=== PATIENT | female | born 1955 | race Caucasian/White ===

== ENCOUNTER 2023-04-07 10:01 | Observation (INO) ==
--- NOTE | 2023-03-02 14:31 | Anesthesiology Consultation ---
Date of Service March 02, 2023 Assessment & Plan (1) Encounter for pre-operative examination: - patient states will need to call into PAT with medication list. - upcoming S PCP pre-operative evaluation, ESR also needs completed. PAT testing and optimization form to be faxed to PCP. Chart Review Chart Review: Pending: Refer to Additional Notes / Consult section and Patient seen in Pre Admission Testing Teaching & Discussion Pre-Anesthesia Teaching/Discussion Notes: Instructed NPO after midnight before surgery, except medications with 15 cc of water. Medication instructions provided according to the PAT guidelines. History Surgery Operation Date: 04/07/23 09:25 Proposed Procedures p Right Total Knee Replacement - Erasmo Musa MD Height/Weight Height: 5 ft 7 in Weight: 94.6 kg Allergies Allergy/AdvReac Type Severity Reaction Status Date / Time aspirin AdvReac Unknown Contraindicated Verified 03/02/23 14:56 HX: GASTRIC BYPASS morphine AdvReac Unknown Nausea Verified 03/02/23 14:56 Medications Home Medications Medication Instructions Recorded Confirmed Last Taken lorazepam 0.5 mg tablet (Ativan) 0.5 mg PO DAILY PRN Anxiety 04/14/18 03/02/23 04/26/18 montelukast 10 mg tablet 10 mg PO QAM 04/14/18 03/02/23 04/26/19 (Singulair) venlafaxine 150 mg 150 mg PO QAM 04/14/18 03/02/23 04/26/19 capsule,extended release 24 hr acetaminophen 500 mg tablet 1,000 mg PO BID PRN Pain 04/27/18 03/02/23 Unknown (Tylenol Extra Strength) loratadine 10 mg tablet (Claritin) 10 mg PO QAM PRN Allergy Symptoms 04/27/18 03/02/23 04/26/19 pediatric multivitamin 1 tab PO QAM 04/27/18 03/02/23 04/26/19 (Flintstones Multivitamin chewable tablet) venlafaxine 75 mg capsule,extended 75 mg PO QAM 04/27/18 03/02/23 04/26/19 release 24 hr fluticasone propionate 50 2 spray intranasal DAILY PRN 04/26/19 03/02/23 Unknown mcg/actuation nasal Allergy Symptoms spray,suspension (Flonase Allergy Relief) ondansetron HCl 4 mg tablet 4 mg PO Q8H PRN nausea and 11/05/21 11/29/23 Unknown (Zofran) vomiting #20 tabs albuterol sulfate 90 mcg/actuation 1 puff inhalation QID PRN 03/02/23 03/02/23 Unknown aerosol inhaler Shortness Of Breath Or Wheezing hydrocodone 5 mg-acetaminophen 325 1 tab PO Q6 PRN Pain 03/02/23 03/02/23 Unknown mg tablet Past Medical History Medical History History of diverticulitis 4 yrs ago History of COVID-19 02/2021 and 2021- no hosp; resolved History of renal calculi last renal stone 2 yrs ago Anxiety and depression Osteoporosis Urge incontinence of urine GERD (gastroesophageal reflux disease) controlled, stable per pt Hypertension average range 140-160s/80 per pt, following with PCP Pulmonary nodules Asthma uses inhaler mostly during the summer; last rescue inhaler use several months ago Prediabetes per [facility] EMR Peptic ulcer hx Patient denies h/o stroke, seizures, heart attack, heart failure, blood clots/DVTs or blood transfusions. Exercise / Class Metabolic Activity II 4-5 Yardwork/Stairs/Walk up hill (shortness of breath with 1 FOS ongoing 2 yrs ago, denies change or worsening; denies chest discomfort) Past Family History Family History Other No pertinent family history in first degree relatives Past Surgical History Surgical History Hx of colonoscopy Hx of cholecystectomy History of hysterectomy History of tonsillectomy History of appendectomy History of lumbar surgery 2009 History of cervical spinal surgery 2002 History of foot surgery left bunionectomy and sesamoidectomy 2010 History of carpal tunnel surgery of left wrist History of laparoscopy History of esophagogastroduodenoscopy (EGD) Hx of gastric bypass History of abdominal surgery laparotomy Past Anesthesia History No Hx of Anesthesia Complications and No Family Hx of Anesthesia Complications History of PONV No Hx of Motion Sickness and History of PONV (denies needing scop patch) Social History Smoking Status: Former smoker Do You Dip or Chew Tobacco: No Hx Alcohol Use: No Hx Substance Use: No Review of Systems Patient denies chest pain, shortness of breath, dyspnea on exertion, fever, chills, cough, wheezing, or palpitations. Physical Exam Vital Signs Vitals BP 134/85 P 74 TEMP 97.9 SP02 96% on RA RESP 18 Physical Patient resting comfortably in chair in no acute distress, alert and oriented, responding appropriately throughout visit Full cervical extension range of motion without pain TMD 3.5 finger breadths Mallampati Score 2 Dentition: multiple implants in front; denies chipped or loose teeth, caps/crowns, or bridges Lungs: normal respiratory effort. Good air movement, clear throughout to auscultation, no adventitious breath sounds Cardiac: regular rate and rhythm, no murmurs noted Carotid arteries: negative bruit bilat Lab Results Anesthesia Preop Results Results Anesthesia Widget: WBC 8.44 K/ul (4.8-10.8) 03/02/23 Hgb 11.4 g/dl (12.0-16.0) L 03/02/23 Hct 34.1 % (37.0-47.0) L 03/02/23 Plt 394 K/uL (130-400) 03/02/23 Na 137 mmol/L (136-145) 03/02/23 K 4.6 mmol/L (3.5-5.1) 03/02/23 Cl 103 mmol/L (98-107) 03/02/23 CO2 30 mmol/L (21-32) 03/02/23 BUN 8 mg/dl (6-23) 03/02/23 Creat 0.56 mg/dl (0.6-1.2) L 03/02/23 Glucose Level 85 mg/dl (70-99(Fasting)) 03/02/23 PT 10.3 Seconds (9.0-12.0) 03/02/23 PTT 26.0 Seconds (21.0-31.0) 03/02/23 INR 0.9 (0.9-1.1) 03/02/23 Urine Color Yellow 03/02/23 Urine Appearance Clear (Clear) 03/02/23 Urine pH 6.5 (4.5-7.5) 03/02/23 Urine Specific [place] 1.005 (1.000-1.030) 03/02/23 Urine Protein Negative (Negative) 03/02/23 Urine Glucose (UA) Negative (Negative) 03/02/23 Urine Ketones Negative (Negative) 03/02/23 Urine Blood Negative (Negative) 03/02/23 Urine Nitrite Negative (Negative) 03/02/23 Urine Bilirubin Negative (Negative) 03/02/23 Urine Urobilinogen Negative (Negative) 03/02/23 Urine Leukocyte Esterase Negative (Negative) 03/02/23 Blood Type A Positive 03/02/23 Antibody Screen NEGATIVE 03/02/23 Testing Electrocardiogram Date: 03/02/23 NSR, rate 69 bpm Chest X-Ray Date: 03/02/23 No active disease in the chest. Stress Test Date: 02/20/20 Pharmacologic MPHR 96% Negative for inducible ischemia EF 60-64% Mild mitral regurgitation Other Testing CT abdomen pelvis 11/22/22 1. No findings in the abdomen or pelvis to explain pain. 2. Chronic findings, as above. Carotid doppler 07/30/21 1. No hemodynamically significant stenosis (less than 50%) of the RIGHT carotid artery by NASCET. 2. No hemodynamically significant stenosis (less than 50%) of the LEFT carotid artery by NASCET.
--- NOTE | 2023-03-02 15:15 | PAT Medication Instructions ---
Medication Instructions Date of Service March 02, 2023 Home Medications Medication Instructions Recorded ondansetron HCl 4 mg tablet 4 mg PO Q8H PRN nausea and 02/06/21 (Zofran) vomiting #20 tabs lorazepam 0.5 mg tablet (Ativan) 0.5 mg PO DAILY PRN Anxiety montelukast 10 mg tablet (Singulair) 10 mg PO QAM venlafaxine 150 mg capsule,extended release 24 hr 150 mg PO QAM acetaminophen 500 mg tablet (Tylenol Extra Strength) 1,000 mg PO BID PRN Pain loratadine 10 mg tablet (Claritin) 10 mg PO QAM PRN Allergy Symptoms pediatric multivitamin (Flintstones Multivitamin chewable tablet) 1 tab PO QAM venlafaxine 75 mg capsule,extended release 24 hr 75 mg PO QAM fluticasone propionate 50 mcg/actuation nasal spray,suspension (Flonase Allergy Relief) 2 spray intranasal DAILY PRN Allergy Symptoms ondansetron HCl 4 mg tablet (Zofran) 4 mg PO Q8H PRN nausea and vomiting albuterol sulfate 90 mcg/actuation aerosol inhaler 1 puff inhalation QID PRN Shortness Of Breath Or Wheezing hydrocodone 5 mg-acetaminophen 325 mg tablet 1 tab PO Q6 PRN Pain DO NOT take the morning of surgery montelukast 10 mg tablet (Singulair) 10 mg PO QAM loratadine 10 mg tablet (Claritin) 10 mg PO QAM PRN Allergy Symptoms pediatric multivitamin (Flintstones Multivitamin chewable tablet) 1 tab PO QAM Take morning of surgery With a small sip of water, OTHERWISE NOTHING TO EAT OR DRINK AFTER MIDNIGHT: lorazepam 0.5 mg tablet (Ativan) 0.5 mg PO DAILY PRN Anxiety (if needed) venlafaxine 150 mg capsule,extended release 24 hr 150 mg PO QAM acetaminophen 500 mg tablet (Tylenol Extra Strength) 1,000 mg PO BID PRN Pain (if needed) venlafaxine 75 mg capsule,extended release 24 hr 75 mg PO QAM fluticasone propionate 50 mcg/actuation nasal spray,suspension (Flonase Allergy Relief) 2 spray intranasal DAILY PRN Allergy Symptoms (if needed) ondansetron HCl 4 mg tablet (Zofran) 4 mg PO Q8H PRN nausea and vomiting (if needed) albuterol sulfate 90 mcg/actuation aerosol inhaler 1 puff inhalation QID PRN Shortness Of Breath Or Wheezing (use if needed; please bring rescue inhaler with you to hospital day of surgery if possible) hydrocodone 5 mg-acetaminophen 325 mg tablet 1 tab PO Q6 PRN Pain (if needed) Take evening before surgery lorazepam 0.5 mg tablet (Ativan) 0.5 mg PO DAILY PRN Anxiety (if needed) acetaminophen 500 mg tablet (Tylenol Extra Strength) 1,000 mg PO BID PRN Pain (if needed) fluticasone propionate 50 mcg/actuation nasal spray,suspension (Flonase Allergy Relief) 2 spray intranasal DAILY PRN Allergy Symptoms (if needed) ondansetron HCl 4 mg tablet (Zofran) 4 mg PO Q8H PRN nausea and vomiting (if needed) albuterol sulfate 90 mcg/actuation aerosol inhaler 1 puff inhalation QID PRN Shortness Of Breath Or Wheezing (if needed) hydrocodone 5 mg-acetaminophen 325 mg tablet 1 tab PO Q6 PRN Pain (if needed) Other Notes If you have any questions please call us at [phone] or [phone] or [phone] or [phone]
--- NOTE | 2023-04-06 07:45 | History & Physical Report ---
Date of Service April 06, 2023 Assessment & Plan (1) Right knee DJD: Plan: Right total knee replacements patient-specific implants hospital stay and placement in ECF SNF or rehab History of Present Illness Chief Complaint: Right knee pain Primary Care Provider: Toy Bedolla PA-C Patient is a 68-year-old female with greater than 5-year history of right knee pain and discomfort. She rates her pain as a 10 out of 10. The pain is associated with weakness and instability. She has decreased standing and walking tolerance. She has failed both bracing and injection therapy. Patient has radiographic evidence of advanced arthritis of the knee and is admitted for elective knee replacement. 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 She is electing to stay overnight and seeks an inpatient rehabilitation recovery. Allergies Allergy/AdvReac Type Severity Reaction Status Date / Time aspirin AdvReac Unknown Contraindicated Verified 03/02/23 14:56 HX: GASTRIC BYPASS morphine AdvReac Unknown Nausea Verified 03/02/23 14:56 Home Medications Medication Instructions Recorded Confirmed Type montelukast 10 mg tablet 10 mg PO QAM 04/14/18 03/02/23 History (Singulair) venlafaxine 150 mg 150 mg PO QAM 04/14/18 03/02/23 History capsule,extended release 24 hr acetaminophen 500 mg tablet 1,000 mg PO BID PRN Pain 04/27/18 03/02/23 History (Tylenol Extra Strength) pediatric multivitamin 1 tab PO QAM 04/27/18 03/02/23 History (Flintstones Multivitamin chewable tablet) venlafaxine 75 mg capsule,extended 75 mg PO QAM 04/27/18 03/02/23 History release 24 hr ondansetron HCl 4 mg tablet 4 mg PO Q8H PRN nausea and 02/06/21 03/02/23 Rx (Zofran) vomiting #20 tabs albuterol sulfate 90 mcg/actuation 1 puff inhalation QID PRN 03/02/23 03/02/23 History aerosol inhaler Shortness Of Breath Or Wheezing hydrocodone 5 mg-acetaminophen 325 1 tab PO Q6 PRN Pain 03/02/23 03/02/23 History mg tablet losartan 50 mg tablet 50 mg PO QAM 03/31/23 03/31/23 History magnesium 200 mg tablet 400 mg PO QAM 03/31/23 03/31/23 History omeprazole 20 mg delayed 20 mg PO QAM 03/31/23 03/31/23 History release,disintegrating tablet vitamin E 200 unit tablet 180 mg PO QAM 03/31/23 03/31/23 History zinc 50 mg tablet 50 mg PO QAM 03/31/23 03/31/23 History Past Med/Surg History Medical History History of diverticulitis 4 yrs ago History of COVID-19 02/2021 and 2021- no hosp; resolved History of renal calculi last renal stone 2 yrs ago Anxiety and depression Osteoporosis Urge incontinence of urine GERD (gastroesophageal reflux disease) controlled, stable per pt Hypertension average range 140-160s/80 per pt, following with PCP Pulmonary nodules Asthma uses inhaler mostly during the summer; last rescue inhaler use several months ago Prediabetes per [facility] EMR Peptic ulcer hx Surgical History Hx of colonoscopy Hx of cholecystectomy History of hysterectomy History of tonsillectomy History of appendectomy History of lumbar surgery 2009 History of cervical spinal surgery 2002 History of foot surgery left bunionectomy and sesamoidectomy 2010 History of carpal tunnel surgery of left wrist History of laparoscopy History of esophagogastroduodenoscopy (EGD) Hx of gastric bypass History of abdominal surgery laparotomy Family History Other No pertinent family history in first degree relatives Social History Smoking Status: Former smoker Tobacco Type: Cigarettes Second Hand Exposure: No; Do You Dip or Chew Tobacco: No; Hx Alcohol Use: No Hx Substance Use: No Preferred Language: Japanese Communication Ability: Effective Channel Account Manager Required: No Beliefs That Will Affect Care: None Current Living Situation: Spouse Feels Safe at Home: Yes Assistive Devices: Contacts Review of Systems Review of Systems: Knee pain Physical Exam Physical Exam: General: Woman who appears to be slightly older than her stated age. HEENT: NCAT, EOMI, PERRLA. Neck: Without bruits Heart: Regular rate and rhythm no murmurs Lungs: Breath sounds clear and present in all zee Abdomen: Soft nontender bowel sounds are positive Extremities: Right knee shows varus deformity passive range of motion is 5 to 115 degrees with 3 mm medial laxity positive effusion and pain with range of motion. Neurological and vascular: Intact Results & Data Results & Data Vital Signs (Past 12 Hours) Weight 94 kg BMI 32 Blood pressure 146/74 Pulse 77
[~2023-04-07 10:01] MED LIST: ACETAMINOPHEN 500 MG TAB PO SCH; BUPIVACAINE 0.25% PF 30 ML VIAL ONE; BUPIVACAINE 0.5 % 5 MG/1 ML PF 10ML VIAL ONE; FAMOTIDINE 20 MG TAB PO SCH; GABAPENTIN 300 MG CAP PO SCH; LIDOCAINE 2% 2 ML VIAL/AMP(20MG/ML) INFIL ONE; LR 500ML BOLUS, THEN 15ML/HR IV SCH; LR 60ML/HR IV SCH; METOCLOPRAMIDE HCL 10 MG TABLET PO SCH; MIDAZOLAM HCL 1 MG/ML 2ML VIAL ONE; ONDANSETRON INJ 2 MG/ML 2 ML VIAL ONE; PROPOFOL IV EMULSION 10 MG/ML 20 ML VIAL IV ONE; ROPIVACAINE 0.5% HCL/PF 150 MG, BUPIVACAINE 0.75% MPF 20 ML, EPINEPHrine 30MG/30ML (OR ... INFIL SCH; TRANEXAMIC ACID 1,000 MG **IV Intra-op IV SCH; TRANEXAMIC ACID 1,000 MG **IV Pre-op IV SCH; ceFAZolin 2000MG 2,000 MG/15 ML SYR IV SCH; dexAMETHasone 4 MG TAB PO SCH; oxyCODONE HCL 10 MG TABCR (OxyCONTIN) PO SCH
--- NOTE | 2023-04-07 10:52 | History & Physical Bridge Note ---
Date of Service April 07, 2023 History & Physical Bridge Note I have examined the patient, reviewed the History & Physical and in the interval since the performance of the History & Physical I have noted the following changes of clinical significance: no changes noted
[2023-04-07] MEDS ORDERED: fentaNYL citrate PF 100 MCG/2 ML VIAL IV PRN (10:59)
[2023-04-07] MEDS ORDERED: PROMETHAZINE HCL 6.25 MG in SODIUM CHLORIDE 0.9% 50 ML IV PRN (10:59)
[2023-04-07] MEDS ORDERED: ONDANSETRON INJ 2 MG/ML 2 ML VIAL IV PRN ×2 (10:59→13:44)
[2023-04-07] MEDS ORDERED: ePHEDrine sulfate 50 MG/ML AMP IV PRN (10:59)
[2023-04-07] MEDS ORDERED: ATROPINE SULFATE 0.1 MG/ML 10ML SYR IV PRN (10:59)
[2023-04-07] MEDS ORDERED: ORTHO JOINT ANESTHETIC ONE (11:32)
[2023-04-07] MEDS ORDERED: LABETALOL HCL IV 5 MG/ML 20ML IV ONE (12:50)
[2023-04-07] MEDS ORDERED: KETOROLAC 30 MG/ML VIAL ONE (13:33)
--- NOTE | 2023-04-07 13:40 | Post Operative Brief Note ---
Immediate Post Op Note v1 Date of Surgery April 07, 2023 Pre & Post Diagnosis Operation Date: 04/07/23 11:15 Pre-Op Diagnosis: Right Knee Osteoarthritis Post-Op Diagnosis: Right Knee Osteoarthritis I identified the patient and participated in the time-out.: Yes Procedure Operation Date: 04/07/23 11:15 Actual Procedures p Right Total Knee Replacement(Right) - Erasmo Musa MD Surgeon Erasmo Musa MD Compliance Specialist Caleb Chávez PA-C Estimated Blood Loss 100 Findings Consistent with Post-Op Diagnosis Drains Hemovac Drain
[2023-04-07] MEDS ORDERED: METOCLOPRAMIDE HCL INJ 5 MG/ML 2 ML VIAL IV PRN (13:44)
[2023-04-07] MEDS ORDERED: MAGNESIUM HYDROXIDE SUSP 30 ML UDC PO PRN (13:44)
[2023-04-07] MEDS ORDERED: bisacodyL 10 MG SUPP PR PRN (13:44)
[2023-04-07] MEDS ORDERED: NALOXONE HCL 0.4 MG/1 ML VIAL/CARP IV PRN (13:44)
[2023-04-07] MEDS ORDERED: NO NSAIDS SCH (13:45)
[2023-04-07] MEDS ORDERED: oxyCODONE HCL IR 5 MG TAB (IMMEDIATE RELEASE) PO PRN (13:49)
--- NOTE | 2023-04-07 14:28 | Operative Report ---
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 The side include injections and bracing. She has radiographic evidence of end-stage disease. Components used: [employer] journey 2 posterior stabilized knee system: Femur size 5 with Oxinium coating, tibia size 4 x 11, patella size 35 oval. Note: Caleb VIRAMONTES was present and assisted throughout due to the complicated nature of this case. He help with preparation and set up an medication assistant throughout. He assisted with hemostasis and exposure throughout the procedure. He also closed the capsule subcutaneous and skin layers and applied the postop dressing. Description of Procedure Following satisfactory spinal anesthesia the patient was supine on the operating room table. The right lower extremity was prepared with ChloraPrep and draped sterilely. A surgical timeout was performed. Midline incision was made and deepened through a fairly large subcutaneous fat layer. Hemostasis was obtained. A medium patellar arthrotomy was performed and again hemostasis was obtained. The knee showed the changes noted above. The patient had moderate to severe patella [place]. Therefore attention was first turned to the patella. The patella was freehand cut and sized for a 35 button which enhanced exposure to the lateral gutter of the knee. The posterior cruciate ligament was excised. The patient matched femoral block was applied. Femoral distal rotation and resection were setting completed. The 4-in-1 block was used to finish preparation of the femur. The bone quality showed moderate to severe osteopenia. The tibial meniscal fragments were excised. The patient matched tibial block was applied. Tibial resection was completed. Soft tissue balancing was then completed in flexion and extension. A trial reduction with the above-mentioned components was performed. This showed good tensioning and stability on the collateral ligaments and stable range of motion from full extension to around 120 degrees of flexion. The patella tracked well throughout. The trial components were removed. The capsule was prepared with the orthopedic cocktail. After irrigation and drying the components were cemented using Piper Z be cement cementing the tibia first, femur second, and patella third. When the cemented hardened the knee was checked and showed similar stability and tracking. The wound was irrigated with 500 cc of experience irrigation. A Hemovac drain was placed. The capsulotomy was closed with interrupted [id number] sutures of 1 Vicryl and a running suture of 0 strata fix. The deeper subcutaneous layers were closed with 0 strata fix. The most superficial layer with 3 oh strata fix. Dermabond Steri-Strips and a negative pressure wound dressing were applied. A compressive bandage was then applied. The patient was returned to her bed in stable condition. I attest to the content of the Intraoperative Record and any orders documented therein. Any exceptions are noted below.
--- NOTE | 2023-04-07 14:37 | Anesthesiology Progress Note ---
Date of Service April 07, 2023 Anesthesia Post Procedure Vital Signs Vital Signs: Temp Pulse Pulse Resp BP Pulse Ox O2 Del Method 04/07/23 14:17 36.8 C 78 12 119/67 96 Oxymask 04/07/23 10:29 Room Air 04/07/23 10:29 37 C 78 18 175/101 H 97 Room Air O2 Flow Rate 04/07/23 14:17 6 04/07/23 10:29 04/07/23 10:29 Pain Intensity Right Knee: Pain Intensity: 3 Transfer of Care Handoff Completed per policy Notes Mental Status: alert / awake / arousable Patient Amnestic to Procedure: Yes Nausea / Vomiting: adequately controlled Pain: adequately controlled Airway Patency, RR, SpO2: stable & adequate BP & HR: stable & adequate Hydration State: stable & adequate Neuraxial Anesthesia: was administered and sensory block is resolving Anesthetic Complications: no major complications apparent and Pt Satisfied with anesthetic care
[2023-04-07] MEDS ORDERED: ALBUTEROL HFA 8 GM INHALER INH PRN (16:50)
[2023-04-07] MEDS ORDERED: ONDANSETRON 4 MG OD TAB PO PRN (17:07)
[2023-04-07] MEDS: SODIUM CHLORIDE 0.9% 1,000 ML IV SCH (17:12)
[2023-04-07] MEDS: traMADol HCL 50 MG TABLET PO PRN (17:31)
--- OUTSIDE RECORDS SUMMARY | 2023-04-07 19:43 | External Medical Summary | Summary of Care ---
Author Name Unknown Organization [facility] Address [address] [place] [address] Phone [phone] Care Team Providers Care Data Software Engineer Name Role Phone Toy Bowie PA-C Primary Care Provider Reason for Visit * Reason Comments eRx-Medication Refill Encounter Details Date Type Department Care Team (Late st Contact Info) Description 03/30/2023 Refill Family Practice, [facility] [address] [place], [place] [id number] Sushil Cueva PA-C [address] [place] [address] Generalized anxiety disorder Allergies Active Allergy Reactions Criticality Noted Date Comments Aspirin 10/11/2015 Pt told to never use aspirin after gastric bypass Amoxicillin-Pot Clavulanate Abdominal pain 05/01/2019 Buspirone 08/13/2016 Nausea, felt bad Oxybutynin 12/07/2019 confusion Azithromycin Nausea/vomiting 08/31/2013 documented as of this encounter (statuses as of 03/30/2023) Medications Medication Sig Dispensed Refills Start Date End Date Status acetaminophen (TYLENOL) 500 MG Tablet 2 caps every 8 hours for 3 days, then 1 cap every 4 hours as needed for pain. Do not exceed 3000mg acetaminophen (Tylenol) every 24 hours. 30 Tab 0 9 Active D-Care Glucometer w/Device KitIndications:Di zziness Use as directed. 1 Kit 0 0 Active Albuterol Sulfate HFA 108 (90 Base) MCG/ACT Inhalation Aerosol SolutionIndicatio ns:Mild persistent asthma without complication Inhale 2 Puffs by mouth every 4 hours as needed for Cough or Wheezing. 18 g 3 1 Active Syringe 25G X 1" 3 MLIndications:Gas tric bypass status for obesity,B12 deficiency Use as directed to inject B12 every 3 months 12 Each 1 3 Active Flintstones Multivitamin Oral Tablet Chewable Take 2 Tablets by mouth daily. 0 Active Cranberry-Vitamin C-Vitamin E 4200-20-3 MG-MG-UNIT Oral Capsule Take 1 Capsule by mouth daily. 0 Active Cyanocobalamin 1000 MCG/ML Injection Solution (Cyanocobalamin)I ndications:Gastri c bypass status for obesity,B12 deficiency INJECT 1000 MCG INTO THE MUSCLE EVERY 3 MONTHS - ROTATE INJECTION SITES 1 mL 0 3 Active Ondansetron HCl 4 MG Oral TabletIndications :Gastroesophageal reflux disease, unspecified whether esophagitis present Take 1 Tablet by mouth every 6 hours as needed for Nausea. 40 Tablet 1 3 Active Losartan Potassium 50 MG Oral Tablet (Cozaar)Indicatio ns:HTN, goal below 140/90 Take 1 Tablet by mouth in the morning. 30 Tablet 5 3 Active tiZANidine HCl 2 MG Oral Tablet (Zanaflex) Take 1 Tablet by mouth every 8 hours as needed for Muscle spasms. 30 Tablet 0 3 Active HYDROcodone-Aceta minophen 10-325 MG Oral TabletIndications :Chronic pain of right knee,MEDICATION USE AGREEMENT Take 1 Tablet by mouth every 6 hours as needed for Pain, Moderate. 120 Tablet 0 3 Active Venlafaxine HCl ER 75 MG Oral Capsule Extended Release 24 Hour (Effexor XR)Indications:Ge neralized anxiety disorder TAKE 1 CAPSULE BY MOUTH EVERY DAY 90 Capsule 1 3 Active Venlafaxine HCl ER 150 MG Oral Capsule Extended Release 24 Hour (Effexor XR)Indications:Ge neralized anxiety disorder TAKE 1 CAPSULE BY MOUTH EVERY DAY IN THE MORNING 90 Capsule 1 3 Active Montelukast Sodium 10 MG Oral Tablet (Singulair) Take 1 Tablet by mouth in the morning. 90 Tablet 3 3 03/30/20 23 Discontinued Venlafaxine HCl ER 150 MG Oral Capsule Extended Release 24 Hour (Effexor XR)Indications:Ge neralized anxiety disorder TAKE 1 CAPSULE BY MOUTH EVERY DAY IN THE MORNING 90 Capsule 1 3 03/30/20 23 Discontinued Venlafaxine HCl ER 75 MG Oral Capsule Extended Release 24 Hour (Effexor XR)Indications:Ge neralized anxiety disorder TAKE 1 CAPSULE BY MOUTH EVERY DAY 90 Capsule 1 3 03/30/20 23 Discontinued Hospital, Clinic, or Other Facility Administered Medication Ordered Dose Route Frequency Start Date End Date Status vitamin b-12 (Cyanocobalamin) inj 1,000 mcgIndications:B12 deficiency 1000 mcg IM [id number] 01/06/2023 12/08/2023 Active documented as of this encounter (statuses as of 03/30/2023) Active Problems Problem Noted Date Diagnosed Date Age-related osteoporosis wit hout current pathological fracture 06/15/2022 Recurrent major depressive disorder, in partial remission 10/20/2021 Marginal ulcer 01/31/2021 Cervical spinal stenosis 04/13/2018 MEDICATION USE AGREEMENT 01/12/2017 H/O excision of lamina of ce rvical vertebra for decompression of spinal cord 12/09/2016 H/O gastric ulcer 12/09/2016 Urge incontinence of urine 01/23/2016 ARNULFO (stress urinary incontinence, female) 2015 Vaginal atrophy 01/23/2016 Gastric bypass status for obesity 07/16/2014 Lung nodules 02/17/2014 Overview: 2014 CT small, granulomatous. 12/14 2-3mm nodules RUL and LL base. ([facility]). Also 07/13 8x7x4 SAMAN nodule (post pneumonia). Hx smoker. [facility]UST[facility]EARCH OTHER*[id number] 01/14/2014 Allergic rhinitis 10/11/2013 GERD (gastroesophageal reflux disease) 4 Generalized anxiety disorder 10/11/2013 History of kidney stones 09/13/2013 Overview: x2--sp passed-no analysis per history 01/18 HTN, goal below 140/90 08/07/2013 Prediabetes 06/20/2013 Asthma, mild intermittent 03/19/2013 documented as of this encounter (statuses as of 03/30/2023) Resolved Problems Problem Noted Date Diagnosed Date Resolved Date COPD, group D, by GOLD 2017 classification 07/12/2022 08/27/2022 Overview: Per COPD GOLD Classification COPD, group C, by GOLD 2017 classification 11/09/2021 07/15/2022 Overview: Per COPD GOLD Classification Chronic obstructive pulmonary disease 10/20/2021 11/12/2021 Overview: Per COPD GOLD Classification COVID-19 virus infection 01/31/202105/2022 Stress due to illness of family member 06/02/2020 10/20/2021 Major depressive disorder, r ecurrent, unspecified 05/09/2019 03/10/2023 Overview: A more specified Dx for Depression is on the PL Abscess of abdominal wall 04/29/2018 Perforated ulcer 04/14/2018 05/01/2019 Overview: 04/22 hosp [facility]. 2nd since her gastric bypass. H/O colonoscopy 01/10/2017 10/14/2020 Overview: 05/15 colonoscopy [facility] WNL H/O mammogram 01/10/2017 10/14/2020 Overview: Neg 09/18 Menopause 01/10/2017 10/14/2020 Overview: fsh hi 99(nml 98) Depression with anxiety 06/17/2016 11/0 09/2022 Advanced directives, counseling/discussion 01/23/2016 02/07/2023 CTS (carpal tunnel syndrome) 07/06/2014 12/09/2016 Dyslipidemia, goal LDL below 100 07/03/2014 01/10/2017 Type 2 diabetes mellitus wit h hemoglobin A1c goal of less than 8.0% 11/01/2013 01/25/2015 Overview: Diet controlled s/p gastric bypass 01/15 LDL 150s. Start statin 10/15 9.0. 07/16 a1c 5.8 03/16 a1c 6.3, 2011 5.8 Declined Maris Mckeon-consider in future ICD-10 update of inactive term Routine general medical exam ination at a health care facility 08/07/2013 11/03/2022 Overview: 04/25 EGD WNL gastric bypass. 02/21 PVR 230cc. F/u urogyn 03/21 with CVA--aphasia and hemiparesis-[place] [place] then [facility] 04/22 02/19 MRI Cspine severe C6-7 stenosis b/l DM in past, resolved w/Gastric bypass. 11/17 EGD WNL. 04/18 Neurosurg-not surg candidate. Consider EMG for RLE numbness. 03/17 MRI lumbar s/p L4-5surgery, no nerve root compression 02/15 PFT WNL. 11/15 stress echo. Borderline LVH, hart Dys Grade I 08/15 10 y risk=4%. NEED family hx., f/u ALMAGUER/irritability 01/14 GASPER neg 05/15 colonoscopy [facility] WNL 2010-recurrent bronchitis-requried steroids x2. DOESN"T tolerate albuterol or xoponex. Does tolerate atrovent Insulin resistance 06/20/2013 7 HTN (hypertension) 03/19/2013 4 Sleep disturbance 03/19/2013 01/10/2017 documented as of this encounter (statuses as of 03/30/2023) Immunizations Name Administration Dates Next Due Hepatitis B, 20+ yrs 11/28/2009 MMR - Measles/Mumps/Rubella Vaccine 11/28/2009 Pneumococcal Polysaccharide PPV23 (Pneumovax) TDAP (age 11 and older)(Adacel) 11/28/2009 documented as of this encounter Social History Tobacco Use Types Packs/Day Years Used Date Smoking Tobacco: Former Cigarettes 1 6 Q uit: 04/04/2000 Smokeless Tobacco: Never Alcohol Use Standard Drinks/Week Comments Not Currently 0 (1 standard drink = 0.6 oz pur e alcohol) rare / PHQ-2 Answer Date Recorded PHQ Adult Total Score 14 06/18/2022 Hunger Vital Sign Answer Date Recorded Within the past 12 months, y ou worried that your food would run out before you got the money to buy more. Never true 07/28/19 23 Within the past 12 months, t he food you bought just didn't last and you didn't have money to get more. Never true 07/27/2022 Sex and Gender Information Value Date Recorded Sex Assigned at Female 06/02/2022 9:40 PM EST Gender Identity Female 06/02/2022 9:40 PM EST Sexual Orientation Choose not to disclose 2022 9:40 PM EST Job Start Date Occupation Industry Not on file Not on file Not on file documented as of this encounter Functional Status Functional Status Response Date of Assess ment Are you deaf or do you have serious difficulty h earing? No 04/28/2018 Are you blind or do you have serious difficulty seeing, even when wearing glasses? No 04/28/2018 Do you have serious difficul ty walking or climbing stairs? (5 years old or older) No 04/28/2018 Do you have difficulty dress ing or bathing? (5 years old or older) No 04/28/2018 Because of a physical, menta l, or emotional condition, do you have difficulty doing errands alone such as visiting a doctor s office or shopping? (15 years old or older) No 04/28/19 19 Cognitive Status Response Date of Assessm ent Because of a physical, menta l, or emotional condition, do you have serious difficulty concentrating, remembering, or making decisions? (5 years old or older) No 04/28/2018 documented as of this encounter Miscellaneous Notes * Telephone Encounter - Andrea Albrecht [facility] - 03/30/2023 2:33 PM ESTSigned Prescriptions: Disp Refills Venlafaxine HCl ER 75 MG Oral Capsule Exte*90 Cap*1 Sig: TAKE 1 CAPSULE BY MOUTH EVERY DAYAuthorizing Provider: TOY BOWIE User: ANDREA ALBRCEHT Venlafaxine HCl ER 150 MG Oral Capsule Ext*90 Cap*1 Sig: TAKE 1 CAPSULE BY MOUTH EVERY DAY IN THE MORNINGAuthorizing Provider: TOY BOWIE User: ANDREA ALBRECHT documented in this encounter Plan of Treatment Upcoming Encounters Date Type Department Care Team (Latest Contact Info) Description 05/17/2023 11:40 AM EST Office Visit General [facility], [facility] [address] [facility] [place] [place] [address] [facility] [place] [facility] [address] [facility] [place] [address] 06/09/2023 7:45 AM EST Hospital Encounter OR [facility], Operating Room, [facility] 3rd Floor [address] [place] [address] Antolin [place]erra MD [address] [facility] [place] [address] 06/09/2023 7:45 AM EST - 06/09/2023 10:15 AM EST Surgery OR [facility], Operating Room, [facility] 3rd [facility] [address] [place] [address] Antolin Becerra MD [address] [facility] [place] [address] ROBOTIC INCISIONAL/VENTRAL/ UMBILICAL HERNIA REPAIR INITIAL < 3 CM INCARCERATED/RICHARD ULATED 06/13/2023 10:00 AM EDT Scheduled Telephone General Surgery, [facility] [address] [facility] [place] [address] [place] Nurse Follow Up Phone Call [address] [facility] [place] [address] 06/14/2023 1:00 PM EDT Office Visit General Surgery, [facility] [address] [facility] [place] [address] Antolin Becerra MD [address] [place] [address] Scheduled Procedures Name Priority Associated Diagnoses Date/Ti me ROBOTIC INCISIONAL/VENTRAL/UMBILICA L HERNIA REPAIR INITIAL < 3 CM INCARCERATED/STRANGULATED Marginal ulcer Umbilical hernia 06/09/2023 7:45 AM EST LAPAROSCOPY DIAGNOSTIC Marginal ulcer Umbilical hernia 06/09/2023 7:45 AM EST Health Maintenance Due Date Last Done Comments Cologuard 2001 Fecal Occult Blood Test 2001 Sigmoidoscopy 2001 Pneumococcal Vaccine: 65+ Years (2 - PCV) 07/06/2015 07/05/2014 DTaP,Tdap,and Td Vaccines (2 - Td or Tdap) 11/29/2019 11/28/2009 Colonoscopy 05/28/2020 05/28/2010 *ADVANCE DIRECTIVE NOT ON FILE 11/19/2021 *BISPHONATE OR OTHER ACCEPTABLE MEDICATION NEEDED FOR OSTEOPOROSIS (REFER TO SMARTSET #8886) 06/17/2022 Depression, Most Recent Score >= 10 (will fire each visit until score < 10) 06/19/2022 06/18/2022 Influenza Vaccine (FLU shot) (#1) 2022 Mammogram 04/13/2023 04/13/2022, 12/2019, 02/06/2018, Additional history exists Colorectal Cancer Screening 08/03/2023 Postponed from 2001 (Other) HbA1c 08/29/2023 08/28/2022, 01/03, 08/22/2019, Additional history exists GFR 03/02/2024 03/02/2023, 08/03, 01/31/2021, Additional history exists DXA Scan 04/13/2024 04/13/2022 Albumin/Creatinine Ratio 02/07/2026 02/07/2023, 04/04 Lipid Panel 08/29/2027 08/28/2022, 06/2020, 11/09/2019, Additional history exists VITAMIN D LEVEL ONCE IN A LIFETIME-USE SMARTSET# [id number] Completed 01/25/2022, 05/02/2020, 12/20/2018, Additional history exists COVID-19 Vaccine Discontinued GARDASIL-HPV IMMUNIZATION SERIES Aged Out No longer eligible based on patient's age to complete this topic Hepatitis C Screening Discontinued MENINGOCOCCAL (MENACTRA/MENVEO) Aged Out No longer eligible based on patient's age to complete this topic Zoster Vaccines Discontinued documented as of this encounter Medical Devices Not on filedocumented as of this encounter Visit Diagnoses Diagnosis Generalized anxiety disorder Marginal ulcer Gastrojejunal ulcer, unspecified as acute or chronic, without mention of hemorrhage, perforation, or obstruction Umbilical hernia Umbilical hernia without mention of obstruction or gangrene documented in this encounter Advance Directives Latest Code Status on File Code Status Date Activated Date Inactivated Comments Full Code 04/28/2018 12:33 AM 04/29/2018 6:42 PM This order reflects the patients wishes and were consensually agreed upon. Question Answer Comments Discussion of Advance Directives occurred with: Not Discussed Does the patient have a Living Will? Yes, not currently available Does the patient have Health Care Power of Dean For Student Affairs? Yes, not currently available Code Status History Code Status Date Activated Date Inactivated Comments Full Code 04/14/2018 5:47 PM 04/18/2018 6:34 PM This order reflects the patients wishes and were consensually agreed upon. Question Answer Comments Discussion of Advance Directives occurred with: Not Discussed Does the patient have a Living Will? Yes, not currently available Does the patient have Health Care Power of Dean For Student Affairs? Yes, not currently available Full Code 04/14/2018 12:43 PM 04/14/2018 5:47 PM This order reflects the patients wishes and were consensually agreed upon. Full Code 10/11/2015 12:38 PM 10/13/2015 4:58 PM Question Answer Comments Discussion of Advance Directives occurred with: Not Discussed Does the patient have a Living Will? No Does the patient have Health Care Power of Dean For Student Affairs? No Full Code 07/03/2014 2:28 PM 07/05/2014 4:44 PM This or reny reflects the patients wishes and were consensually agreed upon. Care Teams Data Software Engineer Relationship Specialty Start Date End Date Toy Bowie PA-C [address] [place] [address] PCP - General Physician Air Pollution Inspector 11/17/22 documented as of this encounter
--- OUTSIDE RECORDS SUMMARY | 2023-04-07 19:43 | External Medical Summary | Summary of Care ---
Author Name Unknown Organization [facility] Address [address] [place] [address] Phone [phone] Care Team Providers Care Freight Shipping Agent Name Role Phone Toy Bowie PA-C Primary Care Provider Reason for Visit * Reason Comments eRx-Medication Refill Encounter Details Date Type Department Care Team (Late st Contact Info) Description 03/30/2023 Refill Family Practice, [facility] [address] [place] [address] Sharer, Erin Rowe MD [address] [place] [address] Allergies Active Allergy Reactions Criticality Noted Date [...] Pain, Moderate. 120 Tablet 0 3 Active Montelukast Sodium 10 MG Oral Tablet (Singulair) TAKE 1 TABLET BY MOUTH EVERY DAY IN THE MORNING 90 Tablet 3 3 Active Venlafaxine HCl ER 75 MG [...] 90 Tablet 3 3 03/30/20 23 Discontinued Hospital, Clinic, or Other Facility Administered Medication Ordered Dose Route Frequency Start Date End Date Status vitamin b-12 (Cyanocobalamin) inj 1,000 mcgIndications:B12 deficiency 1000 mcg IM [id number] 01/06/2023 12/08/2023 Active documented as of this [...] 12/14 2-3mm nodules RUL and LL base. ([facility]). Also 07/13 8x7x4 SAMAN nodule (post pneumonia). Hx smoker. [facility]UST[facility] RESEARCH OTHER*[id number] 01/14/2014 Allergic rhinitis 10/11/2013 GERD (gastroesophageal reflux [...] H/O colonoscopy 01/10/2017 10/14/2020 Overview: 05/15 colonoscopy [facility] WNL H/O mammogram 01/10/2017 10/14/2020 Overview: [...] 03/16 a1c 6.3, 2011 5.8 Declined Maris Linda-consider in future ICD-10 update of inactive term Routine general medical exam ination at a health care facility 08/07/2013 11/03/2022 Overview: 04/25 EGD WNL gastric bypass. 02/21 PVR 230cc. F/u urogyn 03/21 with CVA--aphasia and hemiparesis-hosp [facility] [place] then [facility] 04/22 02/19 MRI Cspine severe C6-7 stenosis b/l DM in past, resolved w/Gastric bypass. 11/17 EGD WNL. 04/18 Neurosurg-not surg candidate. Consider EMG for RLE numbness. 03/17 MRI lumbar s/p L4-5surgery, no nerve root compression 02/15 PFT WNL. 11/15 stress echo. Borderline LVH, hart Dys Grade I 08/15 10 y risk=4%. NEED family hx., f/u ALMAGUER/irritability 01/14 GASPER neg 05/15 colonoscopy [facility] WNL 2010-recurrent bronchitis-requried steroids x2. DOESN"T [...] encounter Miscellaneous Notes * Telephone Encounter - Molina Piper RPh - 03/30/2023 2:45 PM EST Signed Prescriptions: Disp Refills Montelukast Sodium 10 MG Oral Tablet (Sing*90 Tab*3 Sig: TAKE 1 TABLET BY MOUTH EVERY DAY IN THE MORNINGAuthorizing Provider: TOY BOWIE User: MOLINA PIPER documented in this encounter Plan of Treatment Upcoming Encounters Date Type Department Care Team (Latest Contact Info) Description 05/17/2023 11:40 AM EST Office Visit General Surgery, [facility] [address] [place] [address] Antolin Becerra MD [address] [facility] [place] [address] 06/09/2023 7:45 AM EST Hospital Encounter OR [facility]CM, Operating Room, [facility] 3rd Floor [address] [place] [address] Antolin Becerra MD [address] [facility] [place] [address] 06/09/2023 7:45 AM EST - 06/09/2023 10:15 AM EST Surgery OR [facility], Operating Room, [facility] 3rd Floor [address] [place] [address] Antolin Becerra MD [address] [facility] [place] [address] ROBOTIC INCISIONAL/VENTRAL/ UMBILICAL HERNIA REPAIR INITIAL < 3 CM INCARCERATED/RICHARD ULATED 06/13/2023 10:00 AM EDT Scheduled Telephone General Surgery, [facility] [address] [place] [address] [place] Nurse Follow Up Phone Call [address] [place] [phone] 06/14/2023 1:00 PM EDT Office Visit General Surgery, [facility] [address] [place] [address] Antolin Becerra MD [address] [facility] [place] [address] Scheduled Procedures Name Priority Associated Diagnoses Date/Ti ok ROBOTIC INCISIONAL/VENTRAL/UMBILICA L HERNIA REPAIR INITIAL < [...] MEDICATION NEEDED FOR OSTEOPOROSIS (REFER TO SMARTSET #1146) 06/17/2022 Depression, Most Recent Score >= 10 [...] 02/07/2026 02/07/2023, 04/04 Lipid Panel 08/29/2027 08/28/2022, 1206/2020, 11/09/2019, Additional history exists VITAMIN D LEVEL ONCE IN A LIFETIME-USE SMARTSET# [id number] Completed 01/25/2022, 05/02/2020, 12/20/2018, Additional history exists COVID-19 Vaccine Discontinued GARDASIL-HPV IMMUNIZATION SERIES Aged Out No longer eligible based on patient's age to complete this topic Hepatitis C Screening Discontinued MENINGOCOCCAL (MENACTRA/MENVEO) Aged Out No longer eligible based on patient's age to complete this topic Zoster Vaccines Discontinued documented as of this encounter Medical Devices Not on filedocumented as of this encounter Advance Directives Latest Code Status [...] the patient have Health Care Power of Supervisor Fish Processing? Yes, not currently available Code Status History Code Status Date Activated Date Inactivated Comments Full Code 04/14/2018 5:47 PM 04/18/2018 6:34 PM This order reflects the patients wishes and were consensually agreed upon. Question Answer Comments Discussion of Advance Directives occurred with: Not Discussed Does the patient have a Living Will? Yes, not currently available Does the patient have Health Care Power of Supervisor Fish Processing? Yes, not currently available Full Code 04/14/2018 12:43 PM 04/14/2018 5:47 PM This order reflects the patients wishes and were consensually agreed upon. Full Code 10/11/2015 12:38 PM 10/13/2015 4:58 PM Question Answer Comments Discussion of Advance Directives occurred with: Not Discussed Does the patient have a Living Will? No Does the patient have Health Care Power of Supervisor Fish Processing? No Full Code 07/03/2014 2:28 PM 07/05/2014 4:44 PM This or reny reflects the patients wishes and were consensually agreed upon. Care Teams Freight Shipping Agent Relationship Specialty Start Date End Date Toy Bowie PA-C [address] [place] [address] PCP - General Physician Audiology Director 11/17/22 documented as of this encounter
--- OUTSIDE RECORDS SUMMARY | 2023-04-07 19:44 | External Medical Summary ---
Author Name Unknown Address Unknown Organization K01:[facility] [address] [facility] [address] Laboratory Report Ordering Provider Test Date Status AZEB TAMAYO 03/19/2023 14:56:44 Final Observation Date Value Abnormality Reference (Units ) Status Erythrocyte sedimentation rate by Photometric method 03/19/2023 14:56:44 25 <30 (mm/hour) Final Performing Location [facility] [address] [facility] [address]
--- OUTSIDE RECORDS SUMMARY | 2023-04-07 19:44 | External Medical Summary | Summary of Care ---
Author Name Unknown Organization [facility] Address [address] [place] [address] Phone [phone] Care Team Providers Care Forming Process Line Worker Name Role Phone Toy Bedolla PA-C Primary Care Provider Encounter Details Date Type Department Care Team (Late st Contact Info) Description 03/02/2023 Result Scan Unspecified Department <No scans attached> Allergies Active Allergy Reactions Criticality Noted Date Comments Aspirin 10/11/2015 Pt told to never use aspirin after gastric bypass Amoxicillin-Pot Clavulanate Abdominal pain 05/01/2019 Buspirone 08/13/2016 Nausea, felt bad Oxybutynin 12/07/2019 confusion Azithromycin Nausea/vomiting 08/31/2013 documented as of this encounter (statuses as of 03/08/2023) Medications Medication Sig Dispensed Refills Start Date End Date Status acetaminophen (TYLENOL) 500 MG Tablet 2 caps every 8 hours for 3 days, then 1 cap every 4 hours as needed for pain. Do not exceed 3000mg acetaminophen (Tylenol) every 24 hours. 30 Tab 0 04/18/2018 Active D-Care Glucometer w/Device KitIndications:Diz ziness Use as directed. 1 Kit 0 02/25/2020 Active Albuterol Sulfate HFA 108 (90 Base) MCG/ACT Inhalation Aerosol SolutionIndication s:Mild persistent asthma without complication Inhale 2 Puffs by mouth every 4 hours as needed for Cough or Wheezing. 18 g 3 10/14/2020 Active Montelukast Sodium 10 MG Oral Tablet (Singulair) Take 1 Tablet by mouth in the morning. 90 Tablet 3 04/10/2022 Active Syringe 25G X 1" 3 MLIndications:Merle jayden bypass status for obesity,B12 deficiency Use as directed to inject B12 every 3 months 12 Each 1 06/25/2022 Active Flintstones Multivitamin Oral Tablet Chewable Take 2 Tablets by mouth daily. 0 Active Cranberry-Vitamin C-Vitamin E 4200-20-3 MG-MG-UNIT Oral Capsule Take 1 Capsule by mouth daily. 0 Active Cyanocobalamin 1000 MCG/ML Injection Solution (Cyanocobalamin)In dications:Gastric bypass status for obesity,B12 deficiency INJECT 1000 MCG INTO THE MUSCLE EVERY 3 MONTHS - ROTATE INJECTION SITES 1 mL 0 09/28/2022 Active Venlafaxine HCl ER 150 MG Oral Capsule Extended Release 24 Hour (Effexor XR)Indications:Gen eralized anxiety disorder TAKE 1 CAPSULE BY MOUTH EVERY DAY IN THE MORNING 90 Capsule 1 10/03/2022 Active Venlafaxine HCl ER 75 MG Oral Capsule Extended Release 24 Hour (Effexor XR)Indications:Gen eralized anxiety disorder TAKE 1 CAPSULE BY MOUTH EVERY DAY 90 Capsule 1 10/03/2022 Active Gabapentin 100 MG Oral Capsule (Neurontin)Indicat ions:Chronic pain of right knee Take 1 Capsule by mouth in the morning and 1 Capsule at noon and 1 Capsule before bedtime. 90 Capsule 5 11/12/2022 Active tiZANidine HCl 2 MG Oral Tablet (Zanaflex) Take 1 Tablet by mouth every 8 hours as needed for Muscle spasms. 30 Tablet 0 02/04/2023 Active Ondansetron HCl 4 MG Oral TabletIndications: Gastroesophageal reflux disease, unspecified whether esophagitis present Take 1 Tablet by mouth every 6 hours as needed for Nausea. 40 Tablet 1 02/07/2023 Active HYDROcodone-Acetam inophen 10-325 MG Oral TabletIndications: MEDICATION USE AGREEMENT,Chronic pain of right knee Take 1 Tablet by mouth every 6 hours as needed for Pain, Moderate. 120 Tablet 0 02/15/2023 Active Losartan Potassium 50 MG Oral Tablet (Cozaar)Indication s:HTN, goal below 140/90 Take 1 Tablet by mouth in the morning. 30 Tablet 5 03/03/2023 Active Hospital, Clinic, or Other Facility Administered Medication Ordered Dose Route Frequency Start Date End Date Status vitamin b-12 (Cyanocobalamin) inj 1,000 mcgIndications:B12 deficiency 1000 mcg IM [id number] 01/06/2023 12/08/2023 Active documented as of this encounter (statuses as of 03/08/2023) Active Problems Problem Noted Date Diagnosed Date Age-related osteoporosis wit hout current pathological fracture 06/15/2022 Recurrent major depressive disorder, in partial remission 10/20/2021 Marginal ulcer 01/31/2021 Major depressive disorder, recurrent, unspecifie d 05/09/2019 Cervical spinal stenosis 04/13/2018 MEDICATION USE AGREEMENT 01/12/2017 H/O excision of lamina of ce rvical vertebra for decompression of spinal cord 12/09/2016 H/O gastric ulcer 12/09/2016 Urge incontinence of urine 01/23/2016 ARNULFO (stress urinary incontinence, female) 2015 Vaginal atrophy 01/23/2016 Gastric bypass status for obesity 07/16/2014 Lung nodules 02/17/2014 Overview: 2014 CT small, granulomatous. 12/14 2-3mm nodules RUL and LL base. ([facility]). Also 07/13 8x7x4 SAMAN nodule (post pneumonia). Hx smoker. [facility] OTHER*[id number] 01/14/2014 Allergic rhinitis 10/11/2013 GERD (gastroesophageal reflux disease) 4 Generalized anxiety disorder 10/11/2013 History of kidney stones 09/13/2013 Overview: x2--sp passed-no analysis per history 01/18 HTN, goal below 140/90 08/07/2013 Prediabetes 06/20/2013 Asthma, mild intermittent 03/19/2013 documented as of this encounter (statuses as of 03/08/2023) Resolved Problems Problem Noted Date Diagnosed Date Resolved Date COPD, group D, by GOLD 2017 classification 07/12/2022 08/27/2022 Overview: Per COPD GOLD Classification COPD, group C, by GOLD 2017 classification 11/09/2021 07/15/2022 Overview: Per COPD GOLD Classification Chronic obstructive pulmonary disease 10/20/2021 11/12/2021 Overview: Per COPD GOLD Classification COVID-19 virus infection 01/31/202105/2022 Stress due to illness of family member 06/02/2020 10/20/2021 Abscess of abdominal wall 04/29/2018 Perforated ulcer 04/14/2018 05/01/2019 Overview: 04/22 hosp C. 2nd since her gastric bypass. 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 11/17 EGD WNL. 04/18 Neurosurg-not surg candidate. Consider EMG for RLE numbness. 03/17 MRI lumbar s/p L4-5surgery, no nerve root compression 02/15 PFT WNL. 11/15 stress echo. Borderline LVH, hart Dys Grade I 08/15 10 y risk=4%. NEED family hx., f/u ALMAGUER/irritability 01/14 GASPER neg 05/15 colonoscopy [facility] WNL 2010-recurrent bronchitis-requried steroids x2. DOESN"T tolerate albuterol or xoponex. Does tolerate atrovent Insulin resistance 06/20/2013 7 HTN (hypertension) 03/19/2013 4 Sleep disturbance 03/19/2013 01/10/2017 documented as of this encounter (statuses as of 03/08/2023) Immunizations Name Administration Dates Next Due Hepatitis [...] = 0.6 oz pur e alcohol) rare PHQ-2 Answer Date Recorded PHQ Adult Total [...] No 04/28/2018 documented as of this encounter Plan of Treatment Upcoming Encounters Date Type Department Care Team (Latest Contact Info) Description 03/19/2023 2:00 PM EST Office Visit [facility] [address] [place] [address] Toy Bedolla PA-C [address] [place] [id number] 05/17/2023 11:40 AM EST Office Visit General Surgery, [facility] [address] [place] [address] Antolin Becerra MD [address] [place] [address] 06/09/2023 7:45 AM EST Hospital Encounter OR [facility], Operating Room, [address] [place] [address] Antolin Becerra MD [address] [place] [address] 06/09/2023 7:45 AM EST - 06/09/2023 10:15 AM EST Surgery OR [facility], Operating Room, [address] [place] [address] Antolin Becerra MD [address] [place] [address] ROBOTIC INCISIONAL/VENTRAL/ UMBILICAL HERNIA REPAIR INITIAL < 3 CM INCARCERATED/RICHARD ULATED 06/13/2023 10:00 AM EDT Scheduled Telephone General Surgery, [facility] [address] [place] [address] Efrain, Nurse Follow Up Phone Call [address] [place] [address] 06/14/2023 1:00 PM EDT Office Visit General Surgery, [facility] [address] [place] [address] Antolin Becerra MD [address] [place] [address] Scheduled Procedures Name Priority Associated Diagnoses Date/Ti [...] (FLU shot) (#1) 2022 Mammogram 04/13/2023 04/13/2022, 11/0 12/2019, 02/06/2018, Additional history exists Colorectal Cancer Screening 08/03/2023 Postponed from 2001 (Other) HbA1c 08/29/2023 08/28/2022, 01/03, 08/22/2019, Additional history exists GFR 03/02/2024 03/02/2023, 08/03, 01/31/2021, Additional history exists DXA Scan 04/13/2024 04/13/2022 Albumin/Creatinine Ratio 02/07/2026 02/07/2023, 04/04 Lipid Panel 08/29/2027 08/28/2022, 12/0 06/2020, 11/09/2019, Additional history exists VITAMIN D LEVEL ONCE IN A LIFETIME-USE SMARTSET# [id number] Completed 01/25/2022, 05/02/2020, 12/20/2018, Additional history exists COVID-19 Vaccine Discontinued GARDASIL-HPV IMMUNIZATION SERIES Aged Out No longer eligible based on patient's age to complete this topic Hepatitis C Screening Discontinued MENINGOCOCCAL (MENACTRA/MENVEO) Aged Out No longer eligible based on patient's age to complete this topic Zoster Vaccines Discontinued documented as of this encounter Medical Devices Not on filedocumented as of this encounter Procedures Procedure Name Priority Date/Time Associated Diagnosis Comments EKG SCANNED RESULT 03/02/2023 documented in this encounter Results * EKG SCANNED RESULT (03/02/2023) 03/02/2023 No Physician Data Unknown EKG documented in this encounter Advance Directives Latest [...] the patient have Health Care Power of Etl Bi Developer? Yes, not currently available Code Status History Code Status Date Activated Date Inactivated Comments Full Code 04/14/2018 5:47 PM 04/18/2018 6:34 PM This order reflects the patients wishes and were consensually agreed upon. Question Answer Comments Discussion of Advance Directives occurred with: Not Discussed Does the patient have a Living Will? Yes, not currently available Does the patient have Health Care Power of Etl Bi Developer? Yes, not currently available Full Code 04/14/2018 12:43 PM 04/14/2018 5:47 PM This order reflects the patients wishes and were consensually agreed upon. Full Code 10/11/2015 12:38 PM 10/13/2015 4:58 PM Question Answer Comments Discussion of Advance Directives occurred with: Not Discussed Does the patient have a Living Will? No Does the patient have Health Care Power of Etl Bi Developer? No Full Code 07/03/2014 2:28 PM 07/05/2014 4:44 PM This or reny reflects the patients wishes and were consensually agreed upon. Care Teams Forming Process Line Worker Relationship Specialty Start Date End Date Toy Bedolla PA-C [address] [place] [address] PCP - General Physician Pressure Sealer And Tester 11/17/22 documented as of this encounter
--- OUTSIDE RECORDS SUMMARY | 2023-04-07 19:44 | External Medical Summary | Summary of Care ---
Author Name Unknown Organization [facility] Address [address] [place] [address] Phone [phone] Care Team Providers Care Die Sinker Apprentice Name Role Phone Toy Bedolla PA-C Primary Care Provider Reason for Visit * Reason Onset Date Comments Forms Request 03/15/2023 [facility]- Pre-op Form Encounter Details Date Type Department Care Team (Late st Contact Info) Description 03/15/2023 Telephone [facility] [address] [place] [address] Toy Bedolla PA-C [address] [place], [place] [id number] Forms Request ([facility]... Allergies Active Allergy Reactions Criticality Noted Date Comments Aspirin 10/11/2015 Pt told to never use aspirin after gastric bypass Amoxicillin-Pot Clavulanate Abdominal pain 05/01/2019 Buspirone 08/13/2016 Nausea, felt bad Oxybutynin 12/07/2019 confusion Azithromycin Nausea/vomiting 08/31/2013 documented as of this encounter (statuses as of 03/19/2023) Medications Medication Sig Dispensed Refills Start Date End Date Status acetaminophen (TYLENOL) 500 MG Tablet 2 caps every 8 hours for 3 days, then 1 cap every 4 hours as needed for pain. Do not exceed 3000mg acetaminophen (Tylenol) every 24 hours. 30 Tab 0 04/18/2018 Active D-Care Glucometer w/Device KitIndications:Di zziness Use as directed. 1 Kit 0 02/25/2020 [...] 04/10/2022 Active Syringe 25G X 1" 3 MLIndications:Gas [...] EVERY DAY 90 Capsule 1 10/03/2022 Active Ondansetron HCl 4 MG Oral TabletIndications :Gastroesophageal reflux disease, unspecified whether esophagitis present Take 1 Tablet by mouth every 6 hours as needed for Nausea. 40 Tablet 1 02/07/2023 Active Losartan Potassium 50 MG Oral Tablet (Cozaar)Indicatio ns:HTN, goal below 140/90 Take 1 Tablet by mouth in the morning. 30 Tablet 5 03/03/2023 Active tiZANidine HCl 2 MG Oral Tablet (Zanaflex) Take 1 Tablet by mouth every 8 hours as needed for Muscle spasms. 30 Tablet 0 03/15/2023 Active Gabapentin 100 MG Oral Capsule (Neurontin)Indica tions:Chronic pain of right knee Take 1 Capsule by mouth in the morning and 1 Capsule at noon and 1 Capsule before bedtime. 90 Capsule 5 11/12/2022 3 Discontinu ed(Patient preference /discontin uation) HYDROcodone-Aceta minophen 10-325 MG Oral TabletIndications :MEDICATION USE AGREEMENT,Chronic pain of right knee Take 1 Tablet by mouth every 6 hours as needed for Pain, Moderate. 120 Tablet 0 02/15/2023 3 Discontinu ed(Refill) Hospital, Clinic, or Other Facility Administered Medication Ordered Dose Route Frequency Start Date End Date Status vitamin b-12 (Cyanocobalamin) inj 1,000 mcgIndications:B12 deficiency 1000 mcg IM [id number] 01/06/2023 12/08/2023 Active documented as of this encounter (statuses as of 03/19/2023) Active Problems Problem Noted Date Diagnosed Date [...] 12/14 2-3mm nodules RUL and LL base. ([facility]). Also 07/13 8x7x4 SAMAN nodule (post pneumonia). Hx smoker. [facility] OTHER*[id number] 01/14/2014 Allergic rhinitis 10/11/2013 GERD (gastroesophageal reflux disease) 4 Generalized anxiety disorder 10/11/2013 History of kidney stones 09/13/2013 Overview: x2--sp passed-no analysis per history 01/18 HTN, goal below 140/90 08/07/2013 Prediabetes 06/20/2013 Asthma, mild intermittent 03/19/2013 documented as of this encounter (statuses as of 03/19/2023) Resolved Problems Problem Noted Date Diagnosed Date [...] H/O colonoscopy 01/10/2017 10/14/2020 Overview: 05/15 colonoscopy [facility] WNL H/O mammogram 01/10/2017 10/14/2020 [...] gastric bypass 01/15 LDL 150s. Start statin 7/14 9.0. 07/16 a1c 5.8 03/16 a1c 6.3, 2011 5.8 Declined Maris Mckeon-consider in future ICD-10 update of inactive term Routine general medical exam ination at a health care facility 08/07/2013 11/03/2022 Overview: 04/25 EGD WNL gastric bypass. 02/21 PVR 230cc. F/u urogyn 03/21 with CVA--aphasia and hemiparesis-hosp @[facility] then [facility] 04/22 02/19 [...] f/u ALMAGUER/irritability 01/14 GASPER neg 05/15 colonoscopy [facility] WNL 2010-recurrent bronchitis-requried steroids x2. DOESN"T tolerate albuterol or xoponex. Does tolerate atrovent Insulin resistance 06/20/2013 7 HTN (hypertension) 03/19/2013 4 Sleep disturbance 03/19/2013 01/10/2017 documented as of this encounter (statuses as of 03/19/2023) Immunizations Name Administration Dates Next Due Hepatitis [...] encounter Miscellaneous Notes * Telephone Encounter - Mohit Miranda OSA - 03/19/2023 2:28 PM EST Faxed completed pre op letter to number provided along with OV from 03/19/2023. Transmission was successful. * Telephone Encounter - Toy Bedolla PA-C - 03/18/2023 1:48 PM EST Form reviewed and will complete tomorrow during pre-op visit. * Telephone Encounter - Harmony Pierre OSA - 03/18/2023 8:32 AM EST Pre-op form from [facility] placed in Toy Bedolla's red folder on his desk for review and completion. Patient's appointment is on 03-19-2023 [place], please fax completed form and office visit notes to [facility] at [phone]. * Telephone Encounter - Harmony Pierre OSA - 03/15/2023 12:45 PM EST Pre-op form received from [facility], Dr. Erasmo Musa MD.. Form placed in DALTON Antunez's brown provider folder. Will be placed in Toy Bedolla's red folder closer to appointment date on 03-19-2023. documented in this encounter Plan of Treatment Upcoming Encounters Date Type Department Care Team (Latest Contact Info) Description 05/17/2023 11:40 AM EST Office Visit General Surgery, [facility] [address] [place] [address] Antolin Becerra MD [address] [place] [address] 06/09/2023 7:45 AM EST Hospital Encounter OR [facility], Operating Room, [facility] 3rd Floor [address] [place] [address] Antolin Becerra MD [address] [place] [address] 06/09/2023 7:45 AM EST - 06/09/2023 10:15 AM EST Surgery OR GM, Operating Room, [facility] 3rd Floor [address] [place] [address] Antolin Becerra MD [address] [facility] [place] [address] ROBOTIC INCISIONAL/VENTRAL/ UMBILICAL HERNIA REPAIR INITIAL < 3 CM INCARCERATED/RICHARD ULATED 06/13/2023 10:00 AM EDT Scheduled Telephone General Surgery, [facility] [address] [place] [address] Efrain, Nurse Follow Up Phone Call [address] [place] [address] 06/14/2023 1:00 PM EDT Office Visit General Surgery, [facility] [address] [place] [address] Antolin Becerra MD [address] [place] [address] Scheduled Procedures Name Priority Associated Diagnoses Date/Ti [...] D LEVEL ONCE IN A LIFETIME-USE SMARTSET# 75028 Completed 01/25/2022, 05/02/2020, 12/20/2018, Additional history exists [...] the patient have Health Care Power of Clinical Informatics Spec? Yes, not currently available Code Status History Code Status Date Activated Date Inactivated Comments Full Code 04/14/2018 5:47 PM 04/18/2018 6:34 PM This order reflects the patients wishes and were consensually agreed upon. Question Answer Comments Discussion of Advance Directives occurred with: Not Discussed Does the patient have a Living Will? Yes, not currently available Does the patient have Health Care Power of Clinical Informatics Spec? Yes, not currently available Full Code 04/14/2018 12:43 PM 04/14/2018 5:47 PM This order reflects the patients wishes and were consensually agreed upon. Full Code 10/11/2015 12:38 PM 10/13/2015 4:58 PM Question Answer Comments Discussion of Advance Directives occurred with: Not Discussed Does the patient have a Living Will? No Does the patient have Health Care Power of Clinical Informatics Spec? No Full Code 07/03/2014 2:28 PM 07/05/2014 4:44 PM This or reny reflects the patients wishes and were consensually agreed upon. Care Teams Die Sinker Apprentice Relationship Specialty Start Date End Date Toy Bedolla PA-C [address] [place] [address] PCP - General Physician Provider Education Specialist 11/17/22 documented as of this encounter
--- OUTSIDE RECORDS SUMMARY | 2023-04-07 19:44 | External Medical Summary | Summary of Care ---
Author Name Unknown Organization [facility] Address [address] [place] [address] Phone [phone] Care Team Providers Care Darkroom Worker Name Role Phone Toy Bedolla PA-C Primary Care Provider Reason for Visit * Reason Onset Date Comments Appointment 03/04/2023 Encounter Details Date Type Department Care Team (Late st Contact Info) Description 03/04/2023 Telephone Family Practice, [facility] [address] [place] [address] Toy Bedolla PA-C [address] [place] [address] Appointment Allergies Active Allergy Reactions Criticality Noted Date Comments Aspirin 10/11/2015 Pt told to never use aspirin after gastric bypass Amoxicillin-Pot Clavulanate Abdominal pain 05/01/2019 Buspirone 08/13/2016 Nausea, felt bad Oxybutynin 12/07/2019 confusion Azithromycin Nausea/vomiting 08/31/2013 documented as of this encounter (statuses as of 03/07/2023) Medications Medication Sig Dispensed Refills Start Date End Date Status acetaminophen (TYLENOL) 500 MG Tablet 2 caps every 8 hours for 3 days, then 1 cap every 4 hours as needed for pain. Do not exceed 3000mg acetaminophen (Tylenol) every 24 hours. 30 Tab 0 04/18/2018 Active [facility]-Care Glucometer w/Device KitIndications:Jude olea Use as directed. 1 Kit 0 02/25/2020 [...] Pain, Moderate. 120 Tablet 0 02/15/2023 3 Active Losartan Potassium 50 MG Oral Tablet (Cozaar)Indication s:HTN, goal below 140/90 Take 1 Tablet by mouth in the morning. 30 Tablet 5 03/03/2023 Active Hospital, Clinic, or Other Facility Administered Medication Ordered Dose Route Frequency Start Date End Date Status vitamin b-12 (Cyanocobalamin) inj 1,000 mcgIndications:B12 deficiency 1000 mcg IM [id number] 01/06/2023 12/08/2023 Active documented as of this encounter (statuses as of 03/07/2023) Active Problems Problem Noted Date Diagnosed Date [...] 12/14 2-3mm nodules RUL and LL base. ([facility]). Also 07/13 8x7x4 SAMAN nodule (post pneumonia). Hx smoker. [facility] OTHER*[id number] 01/14/2014 Allergic rhinitis 10/11/2013 GERD (gastroesophageal reflux disease) 4 Generalized anxiety disorder 10/11/2013 History of kidney stones 09/13/2013 Overview: x2--sp passed-no analysis per history 01/18 HTN, goal below 140/90 08/07/2013 Prediabetes 06/20/2013 Asthma, mild intermittent 03/19/2013 documented as of this encounter (statuses as of 03/07/2023) Resolved Problems Problem Noted Date Diagnosed Date [...] H/O colonoscopy 01/10/2017 10/14/2020 Overview: 05/15 colonoscopy [facility] WNL H/O mammogram 01/10/2017 10/14/2020 Overview: [...] F/u urogyn 03/21 with CVA--aphasia and hemiparesis-[place] [place] [facility] 04/22 02/19 MRI Cspine severe C6-7 stenosis b/l DM in past, resolved w/Gastric bypass. 11/17 EGD WNL. 04/18 Neurosurg-not surg candidate. Consider EMG for RLE numbness. 03/17 MRI lumbar s/p L4-5surgery, no nerve root compression 02/15 PFT WNL. 11/15 stress echo. Borderline LVH, hart Dys Grade I 08/15 10 y risk=4%. NEED family hx., f/u ALMAGUER/irritability 01/14 GASPER neg 05/15 colonoscopy [facility] WNL 2010-recurrent bronchitis-requried steroids x2. DOESN"T tolerate albuterol or xoponex. Does tolerate atrovent Insulin resistance 06/20/2013 7 HTN (hypertension) 03/19/2013 4 Sleep disturbance 03/19/2013 01/10/2017 documented as of this encounter (statuses as of 03/07/2023) Immunizations Name Administration Dates Next Due Hepatitis [...] encounter Miscellaneous Notes * Telephone Encounter - Karina Garcia OSA - 03/07/2023 1:16 PM EST I spoke with orthopedics and only labs were completed and not EKG. Will need this done. * Telephone Encounter - Karina Garcia OSA - 03/07/2023 1:03 PM EST Spoke with patient and scheduled sooner appointment. She is scheduled with Dr. Musa in [place] for a right knee replacement 04/07/22. This is located at [facility]. Ph. [phone] Fax. [phone] I called today to have pre admission testing faxed to the office. * Telephone Encounter - Toy Bedolla PA-C - 2023 8:22 AM EST For what procedure? The next listed procedure in [facility] is 06/09/2023? I would not authorize a double book for a pre-operative visit, as they questions and exam that go with a pre-op visit are more extensive and different than a typical exam, and are not able to be addressed during a double book slot. * Telephone Encounter - Mohit Miranda OSA - 03/04/2023 3:06 PM EST Provider, please advise if double book appropriate. Patient is already on the waitlist as well. * Telephone Encounter - Heidi Reeves OSA - 03/04/2023 2:06 PM EST Pt already has an appointment on 04/01/2023 for Pre-Op clearance. Surgery is 04/07/2022, pt needs this appointment anirudh according to provider that is doing the surgery. Please call pt back at [phone]. documented in this encounter Plan of Treatment Upcoming Encounters Date Type Department Care Team (Latest Contact Info) Description 03/19/2023 2:00 PM EST Office Visit Family [facility], [facility] [address] [place] [address] Toy Bedolla PA-C [address] [place] [address] 05/17/2023 11:40 AM EST Office Visit General Surgery, [facility] [address] [place] [address] Antolin Becerra MD [address] [facility] [place] [address] 06/09/2023 7:45 AM EST Hospital Encounter OR [facility], Operating Room, [facility] 3rd Floor [address] [place] [address] Antolin Becerra MD [address] [place] [address] 06/09/2023 7:45 AM EST - 06/09/2023 10:15 AM EST Surgery OR GM, Operating Room, [facility] 3rd Floor [address] [place] [address] Antolin Becerra MD [address] [facility], [place] [id number] ROBOTIC INCISIONAL/VENTRAL/ UMBILICAL HERNIA REPAIR INITIAL < 3 CM INCARCERATED/RICHARD ULATED 06/13/2023 10:00 AM EDT Scheduled Telephone General Surgery, [facility] [address] [place] [address] [place], Nurse Follow Up Phone Call [address] [place] [address] 06/14/2023 1:00 PM EDT Office Visit General Surgery, [facility] [address] [place] [address] Antolin Becerra MD [address] [facility], [place] [id number] Scheduled Procedures Name Priority Associated Diagnoses Date/Ti tx ROBOTIC INCISIONAL/VENTRAL/UMBILICA L HERNIA REPAIR INITIAL < [...] (FLU shot) (#1) 2022 Mammogram 04/13/2023 04/13/2022, 1112/2019, 02/06/2018, Additional history exists Colorectal Cancer Screening 08/03/2023 Postponed from 2001 (Other) GFR 08/29/2023 08/28/2022, 01/04, 02/07/2020, Additional history exists HbA1c 08/29/2023 08/28/2022, 01/03, 08/22/2019, Additional history exists DXA Scan 04/13/2024 04/13/2022 Albumin/Creatinine Ratio 02/07/2026 02/07/2023, 04/04 Lipid Panel 08/29/2027 08/28/2022, 120 06/2020, 11/09/2019, Additional history exists VITAMIN D LEVEL ONCE IN A LIFETIME-USE SMARTSET# [id number] Completed 01/25/2022, 05/02/2020, 12/20/2018, Additional history exists [...] the patient have Health Care Power of Compensation Business Partner? Yes, not currently available Code Status History Code Status Date Activated Date Inactivated Comments Full Code 04/14/2018 5:47 PM 04/18/2018 6:34 PM This order reflects the patients wishes and were consensually agreed upon. Question Answer Comments Discussion of Advance Directives occurred with: Not Discussed Does the patient have a Living Will? Yes, not currently available Does the patient have Health Care Power of Compensation Business Partner? Yes, not currently available Full Code 04/14/2018 12:43 PM 04/14/2018 5:47 PM This order reflects the patients wishes and were consensually agreed upon. Full Code 10/11/2015 12:38 PM 10/13/2015 4:58 PM Question Answer Comments Discussion of Advance Directives occurred with: Not Discussed Does the patient have a Living Will? No Does the patient have Health Care Power of Compensation Business Partner? No Full Code 07/03/2014 2:28 PM 07/05/2014 4:44 PM This or reny reflects the patients wishes and were consensually agreed upon. Care Teams Darkroom Worker Relationship Specialty Start Date End Date Toy Bedolla PA-C [address] [place] [address] PCP - General Physician Residence Hall Director 11/17/22 documented as of this encounter
--- OUTSIDE RECORDS SUMMARY | 2023-04-07 19:44 | External Medical Summary | Summary of Care ---
Author Name Unknown Organization [facility] Address [address] [place] [address] Phone [phone] Care Team Providers Care Director Data Management Name Role Phone Toy Bedolla PA-C Primary Care Provider Reason for Visit * Reason Comments Physical-Exam Encounter Details Date Type Department Care Team (Late st Contact Info) Description 03/19/2023 2:00 PM EST Office Visit [facility] [address] [place], [place] [phone] Toy Bedolla PA-C [address] [place], [place] [phone] Pre-operative examination*; Chronic pain of right knee; HTN, goal below 140/90; Prediabetes; Mild intermittent asthma without complication; Gastroesophageal reflux disease, unspecified whether esophagitis present; MEDICATION USE AGREEMENT Allergies Active Allergy Reactions Criticality Noted Date [...] Muscle spasms. 30 Tablet 0 03/15/2023 Active HYDROcodone-Aceta minophen 10-325 MG Oral TabletIndications :Chronic pain of right knee,MEDICATION USE AGREEMENT Take 1 Tablet by mouth every 6 hours as needed for Pain, Moderate. 120 Tablet 0 03/19/2023 Active Gabapentin 100 MG Oral Capsule (Neurontin)Indica [...] inj 1,000 mcgIndications:B12 deficiency 1000 mcg IM [id number] 01/06/2023 12/08/2023 Active documented as of this [...] 12/14 2-3mm nodules RUL and LL base. ([facility]). Also 07/13 8x7x4 SAMAN nodule (post pneumonia). Hx smoker. [facility] OTHER*[id number] 01/14/2014 Allergic rhinitis 10/11/2013 GERD (gastroesophageal reflux [...] H/O colonoscopy 01/10/2017 10/14/2020 Overview: 05/15 colonoscopy [facility] H/O mammogram 01/10/2017 10/14/2020 Overview: [...] F/u urogyn 03/21 with CVA[place]aphasia and [place]ip[place] [place] [facility] [place] 02/19 MRI Cspine [...] f/u ALMAGUER/irritability 01/14 GASPER neg 05/15 colonoscopy [facility] 2010-recurrent bronchitis-requried steroids x2. DOESN"T [...] on file documented as of this encounter Last Filed Vital Signs Vital Sign Reading Time Taken Comments Blood Pressure 146/74 03/19/2023 1:52 PM EST Pulse 77 03/19/2023 1:52 PM EST Temperature 36.4 C (97.6 F) 03/19/2023 1:52 PM ES T Respiratory Rate 18 03/19/2023 1:52 PM EST Oxygen Saturation 99% 03/19/2023 1:52 PM EST Inhaled Oxygen Concentration - - Weight - - Height - - Body Mass Index - - documented in this encounter Functional Status Functional Status Response [...] No 04/28/2018 documented as of this encounter Patient Instructions * Patient Instructions* Toy Bedolla PA-C - 03/19/2023 7:47 AM EST Patient Instructions: Medical clearance for surgery: Obtained today. Medication changes prior to surgery: Per surgeon, no specific changes from this office but will talk to our pharmacy team for anticoagulation concerns. Keep next appointments. Questions answered. documented in this encounter Progress Notes * Toy Bedolla PA-C - 03/19/2023 2:00 PM EST Images from the original note were not included. Pre-Operative Medical Evaluation Procedure Information Type of Surgery: Right knee replacement Referring Physician / Surgeon: Dr. Musa Date of procedure: 04/07/2023 Brief History of Present Illness: Worsening chronic right knee pain with ambulatory dysfunction. Trial and failure of OTC and Rx products, along with therapy and conservative care. Difficulty with ambulation. Will be going to a SNF postoperatively for recovery as she cannot be home and wouldn't have anyone to help care for her and her . Has questions about going on baby ASA after surgery due to prior gastric ulcers x 2. Surgeon wants this for a month post-op. Having right foot swelling that she thinks is from the bum knee and ambulatory changes. Scared to have the surgery to be done to a degree. Medical History Problem List: COPD, group D, by GOLD 2017 classification ([facility]) (07/12/2022) Age-related osteoporosis without current pathological fracture (2022) COPD, group C, by GOLD 2017 classification ([facility]) (11/09/2021) Chronic obstructive pulmonary disease ([facility]) (10/20/2021) Recurrent major depressive disorder, in partial remission ([facility]) () COVID-19 virus infection (01/31/2021) Marginal ulcer (01/31/2021) Stress due to illness of family member (06/02/2020) Major depressive disorder, recurrent, unspecified ([facility]) (05/09/2019) Abscess of abdominal wall (04/29/2018) Perforated ulcer (HCC) (04/14/2018) Cervical spinal stenosis (04/13/2018) MEDICATION USE AGREEMENT (01/12/2017) H/O colonoscopy (01/10/2017) H/O mammogram (01/10/2017) Menopause (01/10/2017) H/O excision of lamina of cervical vertebra for decompression of spinal cord (12/09/2016) H/O gastric ulcer (12/09/2016) Depression with anxiety (06/17/2016) Advanced directives, counseling/discussion (01/23/2016) Urge incontinence of urine (01/23/2016) ARNULFO (stress urinary incontinence, female) (01/23/2016) Vaginal atrophy (01/23/2016) Gastric bypass status for obesity (07/16/2014) CTS (carpal tunnel syndrome) (07/06/2014) Dyslipidemia, goal LDL below 100 (07/03/2014) Lung nodules (02/17/2014) [facility] OTHER*[id number] (01/14/2014) Type 2 diabetes mellitus with hemoglobin A1c goal of less than 8.0% ([facility]) (11/01/2013) Allergic rhinitis (10/11/2013) GERD (gastroesophageal reflux disease) (10/11/2013) Generalized anxiety disorder (10/11/2013) History of kidney stones (09/13/2013) Routine general medical examination at a health care facility (2013) HTN, goal below 140/90 (08/07/2013) Insulin resistance (06/20/2013) Prediabetes (06/20/2013) Asthma, mild intermittent (03/19/2013) HTN (hypertension) (03/19/2013) Sleep disturbance (03/19/2013) Current Medications tiZANidine HCl 2 MG Oral Tablet (Zanaflex), 2 mg, Oral, Q8H PRN Losartan Potassium 50 MG Oral Tablet (Cozaar), 50 mg, Oral, Daily(AM) Ondansetron HCl 4 MG Oral Tablet, 4 mg, Oral, Q6H PRN Venlafaxine HCl ER 150 MG Oral Capsule Extended Release 24 Hour (Effexor XR), TAKE 1 CAPSULE BY MOUTH EVERY DAY IN THE MORNING Venlafaxine HCl ER 75 MG Oral Capsule Extended Release 24 Hour (Effexor XR), TAKE 1 CAPSULE BY MOUTH EVERY DAY Cyanocobalamin 1000 MCG/ML Injection Solution (Cyanocobalamin), INJECT 1000 MCG INTO THE MUSCLE EVERY 3 MONTHS - ROTATE INJECTION SITES Cranberry-Vitamin C-Vitamin E 4200-20-3 MG-MG-UNIT Oral Capsule, 1 Capsule, Oral, Daily(Non-Specified) Flintstones Multivitamin Oral Tablet Chewable, 2 Tablet, Oral, Daily(Non-Specified) Syringe 25G X 1" 3 ML, Use as directed to inject B12 every 3 months Montelukast Sodium 10 MG Oral Tablet (Singulair), 10 mg, Oral, Daily(AM) Albuterol Sulfate HFA 108 (90 Base) MCG/ACT Inhalation Aerosol Solution, 2 Puff, Inhalation, Q4H PRN D-Care Glucometer w/Device Kit, Use as directed. acetaminophen (TYLENOL) 500 MG Tablet, 2 caps every 8 hours for 3 days, then 1 cap every 4 hours asneeded for pain. Do not exceed 3000mg acetaminophen (Tylenol) every 24 hours. vitamin b-12 (Cyanocobalamin) inj 1,000 mcg, 1,000 mcg Allergies: Aspirin, Augmentin [amoxicillin-pot clavulanate], Buspar [buspirone], Ditropan [oxybutynin], and Zithromax [azithromycin] Past Medical History: has a past medical history of Age-related osteoporosis without current pathological fracture (06/15/2022), Allergic rhinitis (10/11/2013), Arthritis, Asthma, Asthma, mild intermittent (03/19/2013), Cervical spinal stenosis (04/13/2018), COPD (chronic obstructive pulmonary disease) ([facility]), COVID-19 virus infection (01/31/2021), CTS (carpal tunnel syndrome) (07/06/2014), DDD (degenerative disc disease), DM type 2, goal A1C 7-8, Frequent UTI, Gastric bypass status for obesity (07/16/2014), Generalized anxiety disorder (10/11/2013), GERD (gastroesophageal reflux disease) (10/11/2013), H/O excision of lamina of cervical vertebra for decompression of spinal cord (12/09/2016), H/O gastric ulcer (12/09/2016), History of kidney stones (09/13/2013), HTN (hypertension), HTN, goal below 140/90 (08/07/2013), Hyperlipemia, Lung nodules (02/17/2014), Major depressive disorder, recurrent, unspecified (HCC) (05/09/2019), Marginal ulcer (01/31/2021), MEDICATION USE AGREEMENT (01/12/2017), [facility] OTHER*[id number] (01/14/2014), Prediabetes (06/20/2013), Recurrent major depressive disorder, in partial remission (HCC) (10/20/2021), ARNULFO (stress urinary incontinence, female) (01/23/2016), Urge incon tinence of urine (01/23/2016), and Vaginal atrophy (01/23/2016). Past Surgical History: has a past surgical history that includes removal of tonsils, under age 13; removal of appendix (age 19); remove gallbladder (2009); information; vaginal hysterectomy (40YO); Laparoscopic Gastric Bypass/CARYL-EN-Y (N/A, 07/03/2014); EGD, Flexible, Diagnostic (N/A, 07/03/2014); laparoscope procedure,liver (N/A, 07/03/2014); Laparoscopy Diagnostic (N/A, 10/11/2015); EGD, Flexible, Diagnostic (N/A, 10/11/2015); EGD, Flexible, Diagnostic (N/A, 11/19/2015); cervical disc arthroplasty,total,ant,single (2001); remove lumbar spine lamina, 1 seg (2008); carpal tunnel surgery (Left, 05/2014); Laparoscopy Diagnostic (N/A, 04/14/2018); EGD, Flexible, Diagnostic (N/A, 04/14/2018); EGD, Flexible, Diagnostic (N/A, 07/31/2018); EGD, Flexible, Diagnostic (04/19/2019); EGD, Flexible, Diagnostic (02/20/2020); EGD, Flexible, Diagnostic (04/16/2020); pr correction, hallux valgus (bunionectomy), with sesamoidectomy, when performed; with proxim (Left, 2009); and EGD, Flexible, Diagnostic (04/14/2021). Social History: reports that she quit smoking about 22 years ago. Her smoking use included cigarettes. She has a 6.00 pack-year smoking history. She has never used smokeless tobacco. She reports that she does not currently use alcohol. She reports that she does not use drugs. Family History: family history includes Breast Cancer in her cousin (maternal); COPD in her sister; Cancer in her mother; Diabetes in her sister; Melanoma in her daughter; Neurological Disorder (age of onset: 64) inher father. Anesthesia History Type of Anesthesia: General Endotracheal Anesthesia reaction: Yes, "just pee myself." History of surgical complications: None. Personal history of venous thromboembolic disease: None Physical Exam Vitals: 03/19/23 1352 Temp: 36.4 C (97.6 F) Pulse: 77 Resp: 18 SpO2: 99% BP: 146/74 Physical Exam Vitals and nursing note reviewed. Constitutional: Appearance: Normal appearance. She is not ill-appearing or diaphoretic. HENT: Head: Normocephalic and atraumatic. Right Ear: Tympanic membrane, ear canal and external ear normal. Left Ear: Tympanic membrane, ear canal and external ear normal. Nose: Nose normal. Mouth/Throat: Mouth: Mucous membranes are moist. Comments: + Upper denture plate. Mallampati Type 2 Eyes: General: Right eye: No discharge. Left eye: No discharge. Extraocular Movements: Extraocular movements intact. Conjunctiva/sclera: Conjunctivae normal. Pupils: Pupils are equal, round, and reactive to light. Cardiovascular: Rate and Rhythm: Normal rate and regular rhythm. Pulses: Normal pulses. Heart sounds: Normal heart sounds. Pulmonary: Effort: Pulmonary effort is normal. Breath sounds: Normal breath sounds. No wheezing, rhonchi or rales. Abdominal: General: Bowel sounds are normal. Tenderness: There is no abdominal tenderness. There is no right CVA tenderness or left CVA tenderness. Musculoskeletal: General: Tenderness present. Normal range of motion. Cervical back: Normal range of motion and neck supple. No tenderness. Right knee: Swelling (medial), effusion (medial and suprapatellar), ecchymosis (faint), bony tenderness and crepitus present. No deformity or lacerations. Tenderness present over the medial joint line. No patellar tendon tenderness. No LCL laxity, MCL laxity, ACL laxity or PCL laxity. Normal alignment, normal meniscus and normal patellar mobility. Normal pulse. Right lower leg: No edema. Left lower leg: No edema. Comments: + 5/5 strength in the RLE muscles but with pain radiating to the medial knee during movement. Lymphadenopathy: Cervical: No cervical adenopathy. Skin: General: Skin is warm. Capillary Refill: Capillary refill takes less than 2 seconds. Findings: No erythema, lesion or rash. Neurological: General: No focal deficit present. Mental Status: She is alert and oriented to person, place, and time. Sensory: No sensory deficit. Motor: No weakness. Coordination: Coordination normal. Gait: Gait normal. Psychiatric: Mood and Affect: Mood normal. Behavior: Behavior normal. Thought Content: Thought content normal. Judgment: Judgment normal. Labs reviewed and are significant for: Normal - reviewed from 03/02/23. EKG by my review is significant for: Normal on 03/02/23. Surgical Risk Scoring Revised Cardiac Risk Index (RCRI) High-risk type of surgery (examples include vascular and any open intraperitoneal or intrathoracic procedures): 0=No History of ischemic heart disease (history of myocardial infarction or positive exercise test, current compliant of chest pain considered to be secondary to myocardia ischemia, use of nitrate therapy, or ECG with pathological Q waves; do not count prior coronary revascularization procedure unless one of the other criteria for ischemic heart disease is present): 0=No History of heart failure: 0=No History of cerebrovascular disease: 0=No Diabetes mellitus requiring treatment with insulin: 0=No Preoperative serum creatinine >2.0 mg/dL (177 micromol/L): 0=No Pt has revised cardiac index score of: No Risk Factors- 0.4% (95% CI: 0.1-0.8) Screening for Obstructive Sleep Apnea (STOP-BANG) Do you Snore loudly? 0=No Do you often feel Tired, Fatigued, or Sleep? 0=No Has anyone Observed you Stop Breathing or Choking/Gasping during sleep? 0=No Do you have or are you being treated for High Blood Pressure? 1=Yes BMI over 35? 0=No Age older than 50? 1=Yes Neck size large? (For males - 17 inches or larger, For females - 16 inches or larger) 0=No, 15.5 in Male? 0=No Score 0-2:low risk DALTON, 3-4: intermediate risk of DALTON, 5-8: high risk DALTON 2 Assessment and Plan Pre-operative examination Patient Instructions: Medical clearance for surgery: Obtained today. Medication changes prior to surgery: Per surgeon, no specific changes from this office but will talk to our pharmacy team for anticoagulation concerns. Keep next appointments. Questions answered. - ERYTHROCYTE SEDIMENTATION RATE (ESR); Future Chronic pain of right knee - ERYTHROCYTE SEDIMENTATION RATE (ESR); Future - HYDROcodone-Acetaminophen 10-325 MG Oral Tablet; Take 1 Tablet by mouth every 6 hours as needed for Pain, Moderate. HTN, goal below 140/90 Prediabetes Mild intermittent asthma without complication Gastroesophageal reflux disease, unspecified whether esophagitis present MEDICATION USE AGREEMENT - HYDROcodone-Acetaminophen 10-325 MG Oral Tablet; Take 1 Tablet by mouth every 6 hours as needed for Pain, Moderate. Functional Assessment They are able to walk up a flight of stairs, walk two blocks at a moderate pace, do heavy house work like vacuuming, and grocery shop. The patient's functional status is good (greater than 4 METS), when addressing in regards to her cardiac and respiratory status. 1 MET: 4 METs: 4-10 METs: Can take care of self, such as eat, dress or use the toilet. Can walk to block or go up a flight of steps. Can do heavy house work. Surgical Risk Assessment Patient is low medical risk for the listed procedure. Medication adjustments: ASA - need to discuss with anticoagulation clinic. Additional consults or testing: None Toy Bedolla PA-C 03/19/2023 2:21 PM [facility], [place] [address] [facility] [id number] I spent a total of 20-29 minutes (exact time 25 mins) (5 min pre-visit) on the date of service in preparation, delivery, and documentation of the care provided to Marta Washington excluding any time spent in the performance of separately billed services. documented in this encounter Nursing Notes * Diana Hope LPN - 03/19/2023 1:54 PM EST The patient has been properly identified by confirmation of name and date of . Chief Complaint Patient presents with Physical-Exam Knee pre op. Couple questions documented in this encounter Plan of Treatment Upcoming Encounters Date Type Department Care Team (Latest Contact Info) Description 05/17/2023 11:40 AM EST Office Visit General Surgery, [facility] [address] [place] [address] Antolin Becerra MD [address] [place] [address] 06/09/2023 7:45 AM EST Hospital Encounter OR [facility], Operating Room, [facility] [place] 3rd Floor [address] [place] [address] Antolin Becerra MD [address] [place] [address] 06/09/2023 7:45 AM EST - 06/09/2023 10:15 AM EST Surgery OR [facility], Operating Room, [facility] [place] 3rd Floor [address] [place] [address] Antolin Becerra MD [address], [place] [phone] ROBOTIC INCISIONAL/VENTRAL/ UMBILICAL HERNIA REPAIR INITIAL < 3 CM INCARCERATED/RICHARD ULATED 06/13/2023 10:00 AM EDT Scheduled Telephone General Surgery, [facility] [address] [place] [address] Efrain Nurse Follow Up Phone Call [address] [place] [address] 06/14/2023 1:00 PM EDT Office Visit General Surgery, [facility] [address] [place] [address] Antolin Becerra MD [address] [facility], [place] [phone] Scheduled Orders Name Type Priority Associated Diagnoses Orde r Schedule ERYTHROCYTE SEDIMENTATION RATE (ESR) Lab Routine Pre-operative examination Chronic pain of right knee Expected: 03/19/2023 (Approximate), Expires: 03/18/2024 Scheduled Procedures Name Priority Associated Diagnoses Date/Ti [...] D LEVEL ONCE IN A LIFETIME-USE SMARTSET# [id number] Completed 01/25/2022, 05/02/2020, 12/20/2018, Additional history exists [...] as of this encounter Visit Diagnoses Diagnosis Pre-operative examination- Primary Preoperative examination, unspecified Chronic pain of right knee HTN, goal below 140/90 Unspecified essential hypertension Prediabetes Other abnormal glucose Mild intermittent asthma without complication Unspecified asthma Gastroesophageal reflux disease, unspecified whether esophagitis present MEDICATION USE AGREEMENT Marginal ulcer Gastrojejunal ulcer, unspecified as acute [...] the patient have Health Care Power of Statistical Clerk? Yes, not currently available Code Status History Code Status Date Activated Date Inactivated Comments Full Code 04/14/2018 5:47 PM 04/18/2018 6:34 PM This order reflects the patients wishes and were consensually agreed upon. Question Answer Comments Discussion of Advance Directives occurred with: Not Discussed Does the patient have a Living Will? Yes, not currently available Does the patient have Health Care Power of Statistical Clerk? Yes, not currently available Full Code 04/14/2018 12:43 PM 04/14/2018 5:47 PM This order reflects the patients wishes and were consensually agreed upon. Full Code 10/11/2015 12:38 PM 10/13/2015 4:58 PM Question Answer Comments Discussion of Advance Directives occurred with: Not Discussed Does the patient have a Living Will? No Does the patient have Health Care Power of Statistical Clerk? No Full Code 07/03/2014 2:28 PM 07/05/2014 4:44 PM This or reny reflects the patients wishes and were consensually agreed upon. Care Teams Director Data Management Relationship Specialty Start Date End Date Toy Bedolla PA-C [address] [place] [id number] PCP - General Physician Flight Line Mechanic 11/17/22 documented as of this encounter
--- OUTSIDE RECORDS SUMMARY | 2023-04-07 19:44 | External Medical Summary | Summary of Care ---
Author Name Unknown Organization [facility] Address [address] [place] [address] Phone [phone] Care Team Providers Care A And P Mechanic Name Role Phone Toy Bedolla PA-C Primary Care Provider Reason for Visit * Reason Comments Outpatient Testing Encounter Details Date Type Department Care Team (Late st Contact Info) Description 03/19/2023 2:50 PM EST Laboratory Laboratory, [facility] [address] [place], [place] [id number] [place], Lab [address] [place] [address] Pre-operative examination; Chronic pain of right knee Allergies Active Allergy Reactions Criticality Noted Date [...] 0 04/18/2018 Active [facility]-Care Glucometer w/Device KitIndications:Jude lefty Use as directed. 1 Kit 0 02/25/2020 [...] 10/03/2022 Active Ondansetron HCl 4 MG Oral TabletIndications: [...] Muscle spasms. 30 Tablet 0 03/15/2023 Active HYDROcodone-Acetam inophen 10-325 MG Oral TabletIndications: Chronic pain of right knee,MEDICATION USE AGREEMENT Take 1 Tablet by mouth every 6 hours as needed for Pain, Moderate. 120 Tablet 0 03/19/2023 Active Hospital, Clinic, or Other Facility Administered Medication Ordered Dose Route Frequency Start Date End Date Status vitamin b-12 (Cyanocobalamin) inj 1,000 mcgIndications:B12 deficiency 1000 mcg IM [id number] 01/06/2023 12/08/2023 Active documented as of this [...] 12/14 2-3mm nodules RUL and LL base. ([facility]). Also 07/13 8x7x4 SAMAN nodule (post pneumonia). Hx smoker. [facility] OTHER*[id number] 01/14/2014 Allergic rhinitis 10/11/2013 GERD (gastroesophageal reflux [...] H/O colonoscopy 01/10/2017 10/14/2020 Overview: 05/15 colonoscopy [facility] WNL H/O mammogram 01/10/2017 10/14/2020 Overview: Neg 09/18 Menopause 01/10/2017 10/14/2020 Overview: fsh hi 99(nml 98) Depression with anxiety 06/17/2016 1109/2022 Advanced directives, counseling/discussion 01/23/2016 02/07/2023 CTS (carpal [...] F/u urogyn 03/21 with CVA--aphasia and hemiparesis-hosp @[facility] then [facility] 04/22 02/19 MRI Cspine severe C6-7 stenosis b/l DM in past, resolved w/Gastric bypass. 11/17 EGD WNL. 04/18 Neurosurg-not surg candidate. Consider EMG for RLE numbness. 03/17 MRI lumbar s/p L4-5surgery, no nerve root compression 02/15 PFT WNL. 11/15 stress echo. Borderline LVH, hart Dys Grade I 08/15 10 y risk=4%. NEED family hx., f/u ALMAGUER/irritability 01/14 GASPER neg 05/15 colonoscopy [facility] WNL 2010-recurrent bronchitis-requried steroids x2. DOESN"T [...] 11:40 AM EST Office Visit General Surgery, [facility] [address] [place] [address] Antolin Becerra MD [address] [facility] [place] [address] 06/09/2023 7:45 AM EST Hospital Encounter OR [facility], Operating Room, [facility] 3rd Floor [address] [place] [address] Antolin Becerra MD [address] [facility] [place] [address] 06/09/2023 7:45 AM EST - 06/09/2023 10:15 AM EST Surgery OR [facility], Operating Room, [address] [place] [address] Antolin Becerra MD [address] [facility] [place] [address] ROBOTIC INCISIONAL/VENTRAL/ UMBILICAL HERNIA REPAIR INITIAL < 3 CM INCARCERATED/RICHARD ULATED 06/13/2023 10:00 AM EDT Scheduled Telephone General Surgery, [facility] [address] [place] [address] Ef[place], Nurse Follow Up Phone Call [address] [place] [address] 06/14/2023 1:00 PM EDT Office Visit General Surgery, [facility] [address] [place] [address] Antolin Becerra MD [address] [place], [place] [phone] Pending Results Name Type Priority Associated Diagnoses Date /Time ERYTHROCYTE SEDIMENTATION RATE (ESR) Lab Routine Pre-operative examination Chronic pain of right knee 03/19/2023 2:56 PM EST Scheduled Procedures Name Priority Associated Diagnoses Date/Ti wa ROBOTIC INCISIONAL/VENTRAL/UMBILICA L HERNIA REPAIR INITIAL < [...] 02/07/2026 02/07/2023, 04/04 Lipid Panel 08/29/2027 08/28/2022, 12/06/2020, 11/09/2019, Additional history exists VITAMIN D LEVEL ONCE IN A LIFETIME-USE SMARTSET# [id number] Completed 01/25/2022, 05/02/2020, 12/20/2018, Additional history exists [...] of this encounter Visit Diagnoses Diagnosis Pre-operative examination Preoperative examination, unspecified Chronic pain of right knee Marginal ulcer Gastrojejunal ulcer, unspecified as acute [...] the patient have Health Care Power of Boilermaker Mechanic? Yes, not currently available Code Status History Code Status Date Activated Date Inactivated Comments Full Code 04/14/2018 5:47 PM 04/18/2018 6:34 PM This order reflects the patients wishes and were consensually agreed upon. Question Answer Comments Discussion of Advance Directives occurred with: Not Discussed Does the patient have a Living Will? Yes, not currently available Does the patient have Health Care Power of Boilermaker Mechanic? Yes, not currently available Full Code 04/14/2018 12:43 PM 04/14/2018 5:47 PM This order reflects the patients wishes and were consensually agreed upon. Full Code 10/11/2015 12:38 PM 10/13/2015 4:58 PM Question Answer Comments Discussion of Advance Directives occurred with: Not Discussed Does the patient have a Living Will? No Does the patient have Health Care Power of Boilermaker Mechanic? No Full Code 07/03/2014 2:28 PM 07/05/2014 4:44 PM This or reny reflects the patients wishes and were consensually agreed upon. Care Teams A And P Mechanic Relationship Specialty Start Date End Date Toy Bedolla PA-C [address] [place] [address] PCP - General Physician Almond Huller 11/17/22 documented as of this encounter
--- OUTSIDE RECORDS SUMMARY | 2023-04-07 19:44 | External Medical Summary | Summary of Care ---
Author Name Unknown Organization [facility] Address [address] [place] [address] Phone [phone] Care Team Providers Care Leadership Development Consultant Name Role Phone Toy Bedolla PA-C Primary Care Provider Reason for Visit * Reason Onset Date Comments Forms Request 03/15/2023 [facility]- Pre-op Form Encounter Details Date Type Department Care Team (Late st Contact Info) Description 03/15/2023 Telephone [facility] [address] [place] [address] Toy Bedolla PA-C [address] [place] [address] Forms Request ([facility]... Allergies Active Allergy Reactions Criticality Noted Date Comments Aspirin 10/11/2015 Pt told to never use aspirin after gastric bypass Amoxicillin-Pot Clavulanate Abdominal pain 05/01/2019 Buspirone 08/13/2016 Nausea, felt bad Oxybutynin 12/07/2019 confusion Azithromycin Nausea/vomiting 08/31/2013 documented as of this encounter (statuses as of 03/15/2023) Medications Medication Sig Dispensed Refills Start Date [...] before bedtime. 90 Capsule 5 11/12/2022 Active Ondansetron HCl 4 MG Oral TabletIndications: [...] Muscle spasms. 30 Tablet 0 03/15/2023 Active Hospital, Clinic, or Other Facility Administered Medication Ordered Dose Route Frequency Start Date End Date Status vitamin b-12 (Cyanocobalamin) inj 1,000 mcgIndications:B12 deficiency 1000 mcg IM [id number] 01/06/2023 12/08/2023 Active documented as of this encounter (statuses as of 03/15/2023) Active Problems Problem Noted Date Diagnosed Date [...] 12/14 2-3mm nodules RUL and LL base. ([facility]). Also 07/13 8x7x4 SAMAN nodule (post pneumonia). Hx smoker. [facility] OTHER*[id number] 01/14/2014 Allergic rhinitis 10/11/2013 GERD (gastroesophageal reflux disease) 4 Generalized anxiety disorder 10/11/2013 History of kidney stones 09/13/2013 Overview: x2--sp passed-no analysis per history 01/18 HTN, goal below 140/90 08/07/2013 Prediabetes 06/20/2013 Asthma, mild intermittent 03/19/2013 documented as of this encounter (statuses as of 03/15/2023) Resolved Problems Problem Noted Date Diagnosed Date [...] H/O colonoscopy 01/10/2017 10/14/2020 Overview: 05/15 colonoscopy [facility] WNL H/O mammogram 01/10/2017 10/14/2020 Overview: [...] 9.0. 07/16 a1c 5.8 03/16 a1c 6.3, 2012 5.8 Declined Maris Mckeon-consider in future ICD-10 update of inactive term Routine general medical exam ination at a health care facility 08/07/2013 11/03/2022 Overview: 04/25 EGD WNL gastric bypass. 02/21 PVR 230cc. F/u urogyn 03/21 with CVA--aphasia and hemiparesis-hosp @[facility] then [facility] 04/22 02/19 MRI Cspine severe C6-7 stenosis b/l DM in past, resolved w/Gastric bypass. 11/17 EGD WNL. 04/18 Neurosurg-not surg candidate. Consider EMG for RLE numbness. 03/17 MRI lumbar s/p L4-5surgery, no nerve root compression 02/15 PFT WNL. 11/15 stress echo. Borderline LVH, hart Dys Grade I 08/15 10 y risk=4%. NEED family hx., f/u ALMAGUER/irritability 01/14 GASPER neg 05/15 colonoscopy [facility] WNL 2010-recurrent bronchitis-requried steroids x2. DOESN"T tolerate albuterol or xoponex. Does tolerate atrovent Insulin resistance 06/20/2013 7 HTN (hypertension) 03/19/2013 4 Sleep disturbance 03/19/2013 01/10/2017 documented as of this encounter (statuses as of 03/15/2023) Immunizations Name Administration Dates Next Due Hepatitis [...] encounter Miscellaneous Notes * Telephone Encounter - Harmony Pierre OSA - 03/15/2023 12:45 PM EST Pre-op form received from [facility], Dr. Erasmo Musa MD.. Form placed in DALTON Antunez's brown provider folder. Will be placed in Toy Bedolla's red folder closer to appointment date on 03-19-2023. documented in this encounter Plan of Treatment Upcoming Encounters Date Type Department Care Team (Latest Contact Info) Description 03/19/2023 2:00 PM EST Office Visit [facility] [address] [place] [address] Toy Bedolla PA-C [address] [place] [address] 05/17/2023 11:40 AM EST Office Visit General Surgery, [facility] [address] [place] [address] Antolin Becerra MD [address] [place], [place] [id number] 06/09/2023 7:45 AM EST Hospital Encounter OR [facility], Operating Room, [facility] 3rd Floor [address] [place] [address] Antolin Becerra MD [address] [place], [place] [id number] 06/09/2023 7:45 AM EST - 06/09/2023 10:15 AM EST Surgery OR [facility], Operating Room, [facility] 3rd Floor [address] [place] [address] Antolin Becerra MD [address] [place], [place] [phone] ROBOTIC INCISIONAL/VENTRAL/ UMBILICAL HERNIA REPAIR INITIAL < 3 CM INCARCERATED/RICHARD ULATED 06/13/2023 10:00 AM EDT Scheduled Telephone General Surgery, [facility] [address] [place] [address] Efrain Nurse Follow Up Phone Call [address] [facility] [place] [address] 06/14/2023 1:00 PM EDT Office Visit General Surgery, [facility] [address] [place] [address] Antolin Becerra MD [address] [facility], [place] [phone] Scheduled Procedures Name Priority Associated Diagnoses Date/Ti sd ROBOTIC INCISIONAL/VENTRAL/UMBILICA L HERNIA REPAIR INITIAL < [...] D LEVEL ONCE IN A LIFETIME-USE SMARTSET# [id number] Completed 01/25/2022, 05/02/2020, 12/20/2018, Additional history exists [...] the patient have Health Care Power of Investigation Officer? Yes, not currently available Code Status History Code Status Date Activated Date Inactivated Comments Full Code 04/14/2018 5:47 PM 04/18/2018 6:34 PM This order reflects the patients wishes and were consensually agreed upon. Question Answer Comments Discussion of Advance Directives occurred with: Not Discussed Does the patient have a Living Will? Yes, not currently available Does the patient have Health Care Power of Investigation Officer? Yes, not currently available Full Code 04/14/2018 12:43 PM 04/14/2018 5:47 PM This order reflects the patients wishes and were consensually agreed upon. Full Code 10/11/2015 12:38 PM 10/13/2015 4:58 PM Question Answer Comments Discussion of Advance Directives occurred with: Not Discussed Does the patient have a Living Will? No Does the patient have Health Care Power of Investigation Officer? No Full Code 07/03/2014 2:28 PM 07/05/2014 4:44 PM This or reny reflects the patients wishes and were consensually agreed upon. Care Teams Leadership Development Consultant Relationship Specialty Start Date End Date Toy Bedolla PA-C [address] [place] [address] PCP - General Physician Process Improvement Manager 11/17/22 documented as of this encounter
--- OUTSIDE RECORDS SUMMARY | 2023-04-07 19:44 | External Medical Summary | Summary of Care ---
Author Name Unknown Organization [facility] Address [address] [place] [address] Phone [phone] Care Team Providers Care Nipping Machine Operator Name Role Phone Toy Bedolla PA-C Primary Care Provider Reason for Visit * Reason Onset Date Comments Forms Request 03/15/2023 [facility]- Pre-op Form Encounter Details Date Type Department Care Team (Late st Contact Info) Description 03/15/2023 Telephone [facility], [facility] [address] [place] [address] Toy Bedolla PA-C [address] [place], [place] [phone] Forms Request ([facility]... Allergies Active Allergy Reactions Criticality Noted Date Comments Aspirin 10/11/2015 Pt told to never use aspirin after gastric bypass Amoxicillin-Pot Clavulanate Abdominal pain 05/01/2019 Buspirone 08/13/2016 Nausea, felt bad Oxybutynin 12/07/2019 confusion Azithromycin Nausea/vomiting 08/31/2013 documented as of this encounter (statuses as of 03/18/2023) Medications Medication Sig Dispensed Refills Start Date [...] Pain, Moderate. 120 Tablet 0 02/15/2023 3 Hospital, Clinic, or Other Facility Administered Medication Ordered Dose Route Frequency Start Date End Date Status vitamin b-12 (Cyanocobalamin) inj 1,000 mcgIndications:B12 deficiency 1000 mcg IM [id number] 01/06/2023 12/08/2023 Active documented as of this encounter (statuses as of 03/18/2023) Active Problems Problem Noted Date Diagnosed Date [...] 12/14 2-3mm nodules RUL and LL base. ([facility]). Also 07/13 8x7x4 SAMAN nodule (post pneumonia). Hx smoker. [facility] OTHER*[id number] 01/14/2014 Allergic rhinitis 10/11/2013 GERD (gastroesophageal reflux disease) 4 Generalized anxiety disorder 10/11/2013 History of kidney stones 09/13/2013 Overview: x2--sp passed-no analysis per history 01/18 HTN, goal below 140/90 08/07/2013 Prediabetes 06/20/2013 Asthma, mild intermittent 03/19/2013 documented as of this encounter (statuses as of 03/18/2023) Resolved Problems Problem Noted Date Diagnosed Date [...] H/O colonoscopy 01/10/2017 10/14/2020 Overview: 05/15 colonoscopy [facility] WNL H/O mammogram 01/10/2017 10/14/2020 Overview: [...] F/u urogyn 03/21 with CVA--aphasia and hemiparesis[place] then [facility] 04/22 02/19 MRI Cspine severe C6-7 stenosis b/l DM in past, resolved w/Gastric bypass. 11/17 EGD WNL. 04/18 Neurosurg-not surg candidate. Consider EMG for RLE numbness. 03/17 MRI lumbar s/p L4-5surgery, no nerve root compression 02/15 PFT WNL. 11/15 stress echo. Borderline LVH, hart Dys Grade I 08/15 10 y risk=4%. NEED family hx., f/u ALMAGUER/irritability 01/14 GASPER neg 05/15 colonoscopy [facility] WNL 2010-recurrent bronchitis-requried steroids x2. DOESN"T tolerate albuterol or xoponex. Does tolerate atrovent Insulin resistance 06/20/2013 7 HTN (hypertension) 03/19/2013 4 Sleep disturbance 03/19/2013 01/10/2017 documented as of this encounter (statuses as of 03/18/2023) Immunizations Name Administration Dates Next Due Hepatitis [...] the money to buy more. Never true 04/25/20 23 Within the past 12 months, t [...] 03/18/2023 8:32 AM EST Pre-op form from [facility] placed in Toy Bedolla's red folder on his desk for review and completion. Patient's appointment is on 03-19-2023 DALTON, please fax completed form and office visit notes to [facility] at [phone]. * Telephone Encounter - Harmony Pierre OSA - 03/15/2023 12:45 PM EST Pre-op form received from [facility], Dr. Erasmo Musa MD.. Form placed in DALTON Antunez's brown provider folder. Will be placed in Toy Bedolla's red folder closer to appointment date on 03-19-2023. documented in this encounter Plan of Treatment Upcoming Encounters Date Type Department Care Team (Latest Contact Info) Description 03/19/2023 2:00 PM EST Office Visit [facility], [facility] [address] [place] [address] Toy Bedolla PA-C [address] [facility] [address] 05/17/2023 11:40 AM EST Office Visit General Surgery, [facility] [address] [place] [address] Antolin Becerra MD [address] [facility] [place] [address] 06/09/2023 7:45 AM EST Hospital Encounter OR [facility], Operating Room, [facility] 3rd Floor [address] [place] [address] Antolin Becerra MD [address] [facility] [place] [address] 06/09/2023 7:45 AM EST - 06/09/2023 10:15 AM EST Surgery OR [facility], Operating Room, [facility] 3rd Floor [address] [place] [address] Antolin Becerra MD [address] [facility] [place] [address] ROBOTIC INCISIONAL/VENTRAL/ UMBILICAL HERNIA REPAIR INITIAL < 3 CM INCARCERATED/RICHARD ULATED 06/13/2023 10:00 AM EDT Scheduled Telephone General Surgery, [facility] [address] [facility] [place] [address] Efrain Nurse Follow Up Phone Call [address] [facility] [place] [address] 06/14/2023 1:00 PM EDT Office Visit General Surgery, [facility] [address] [place], [place] [phone] Antolin Becerra MD [address] [place] [address] Scheduled Procedures Name Priority Associated Diagnoses Date/Ti [...] D LEVEL ONCE IN A LIFETIME-USE SMARTSET# [id number] Completed 01/25/2022, 05/02/2020, 12/20/2018, Additional history exists [...] the patient have Health Care Power of Assembler For Puller Over Hand? Yes, not currently available Code Status History Code Status Date Activated Date Inactivated Comments Full Code 04/14/2018 5:47 PM 04/18/2018 6:34 PM This order reflects the patients wishes and were consensually agreed upon. Question Answer Comments Discussion of Advance Directives occurred with: Not Discussed Does the patient have a Living Will? Yes, not currently available Does the patient have Health Care Power of Assembler For Puller Over Hand? Yes, not currently available Full Code 04/14/2018 12:43 PM 04/14/2018 5:47 PM This order reflects the patients wishes and were consensually agreed upon. Full Code 10/11/2015 12:38 PM 10/13/2015 4:58 PM Question Answer Comments Discussion of Advance Directives occurred with: Not Discussed Does the patient have a Living Will? No Does the patient have Health Care Power of Assembler For Puller Over Hand? No Full Code 07/03/2014 2:28 PM 07/05/2014 4:44 PM This or reny reflects the patients wishes and were consensually agreed upon. Care Teams Nipping Machine Operator Relationship Specialty Start Date End Date Toy Bedolla PA-C [address] [place] [address] PCP - General Physician Unit Educator 11/17/22 documented as of this encounter
--- OUTSIDE RECORDS SUMMARY | 2023-04-07 19:44 | External Medical Summary | Summary of Care ---
Author Name Unknown Organization [facility] Address [address] [place] [address] Phone [phone] Care Team Providers Care Manager User Experience Name Role Phone Toy Bedolla PA-C Primary Care Provider Reason for Visit * Reason Onset Date Comments Forms Request 03/15/2023 [facility]- Pre-op Form Encounter Details Date Type Department Care Team (Late st Contact Info) Description 03/15/2023 Telephone [facility], [facility] [address] [place] [address] Toy Bedolla PA-C [address] [place], [place] [phone] Forms Request ([facility] Allergies Active Allergy Reactions Criticality [...] inj 1,000 mcgIndications:B12 deficiency 1000 mcg IM [id number] 01/06/2023 12/08/2023 Active documented as of this [...] 12/14 2-3mm nodules RUL and LL base. ([facility]). Also 07/13 8x7x4 SAMAN nodule (post pneumonia). Hx smoker. [facility] OTHER*[id number] 01/14/2014 Allergic rhinitis 10/11/2013 GERD (gastroesophageal reflux [...] H/O colonoscopy 01/10/2017 10/14/2020 Overview: 05/15 colonoscopy [facility] WNL H/O mammogram 01/10/2017 10/14/2020 Overview: [...] F/u urogyn 03/21 with CVA--aphasia and [place]iparesis[place] [facility] 04/22 02/19 MRI Cspine severe C6-7 stenosis b/l DM in past, resolved w/Gastric bypass. 11/17 EGD WNL. 04/18 Neurosurg-not surg candidate. Consider EMG for RLE numbness. 03/17 MRI lumbar s/p L4-5surgery, no nerve root compression 02/15 PFT WNL. 11/15 stress echo. Borderline LVH, hart Dys Grade I 08/15 10 y risk=4%. NEED family hx., f/u ALMAGUER/irritability 01/14 GASPER neg 05/15 colonoscopy [facility] WNL 2010-recurrent bronchitis-requried steroids x2. DOESN"T [...] encounter Miscellaneous Notes * Telephone Encounter - Toy Bedolla PA-C - 03/18/2023 1:48 PM EST Form reviewed and will complete tomorrow during pre-op visit. * Telephone Encounter - Harmony Pierre OSA - 03/18/2023 8:32 AM EST Pre-op form from [facility] placed in Toy Bedolla's red folder on his desk for review and completion. Patient's appointment is on 03-19-2023 [place], please fax completed form and office visit notes to [facility] at [phone]. * Telephone Encounter - Harmony Pierre OSA - 03/15/2023 12:45 PM EST Pre-op form received from [facility], Dr. Erasmo Musa MD.. Form placed in DALTON Antunez's brown provider folder. Will be placed in Toy Bedolla's red folder closer to appointment date on 03-19-2023. documented in this encounter Plan of Treatment Upcoming Encounters Date Type Department Care Team (Latest Contact Info) Description 03/19/2023 2:00 PM EST Office Visit Family Practice, [facility] [address] [place] [address] Toy Bedolla PA-C [address] [place] [address] 05/17/2023 11:40 AM EST Office Visit General Surgery, [facility] [address] [place] [address] Antolin Becerra MD [address] [facility] [place] [address] 06/09/2023 7:45 AM EST Hospital Encounter OR GM, Operating Room, [facility] 3rd Floor [address] [place] [address] Antolin Becerra MD [address] [facility] [place] [address] 06/09/2023 7:45 AM EST - 06/09/2023 10:15 AM EST Surgery OR [facility], Operating Room, [address] [place] [address] Antolin Becerra MD [address] [facility] [place] [address] ROBOTIC INCISIONAL/VENTRAL/ UMBILICAL HERNIA REPAIR INITIAL < 3 CM INCARCERATED/RICHARD ULATED 06/13/2023 10:00 AM EDT Scheduled Telephone General Surgery, [facility] [address] [place] [address] Efrain, Nurse Follow Up Phone Call [address] [place] [address] 06/14/2023 1:00 PM EDT Office Visit General Surgery, [facility] [address] [place] [address] Antolin Becerra MD [address] [place] [address] Scheduled Procedures Name Priority Associated [...] (FLU shot) (#1) 2022 Mammogram 04/13/2023 04/13/2022, 110 12/2019, 02/06/2018, Additional history exists Colorectal Cancer Screening 08/03/2023 Postponed from 2001 (Other) HbA1c 08/29/2023 08/28/2022, 102 07/2021, 08/22/2019, Additional history exists GFR 03/02/2024 03/02/2023, 05/2 10/2022, 01/31/2021, Additional history exists DXA Scan 04/13/2024 04/13/2022 Albumin/Creatinine Ratio 02/07/2026 02/07/2023, 04/04 Lipid Panel 08/29/2027 08/28/2022, 12/0 06/2020, 11/09/2019, Additional history exists VITAMIN D LEVEL ONCE IN A LIFETIME-USE SMARTSET# 42227 Completed 01/25/2022, 05/02/2020, 12/20/2018, Additional history exists [...] the patient have Health Care Power of Cannon Pinion Adjuster? Yes, not currently available Code Status History Code Status Date Activated Date Inactivated Comments Full Code 04/14/2018 5:47 PM 04/18/2018 6:34 PM This order reflects the patients wishes and were consensually agreed upon. Question Answer Comments Discussion of Advance Directives occurred with: Not Discussed Does the patient have a Living Will? Yes, not currently available Does the patient have Health Care Power of Cannon Pinion Adjuster? Yes, not currently available Full Code 04/14/2018 12:43 PM 04/14/2018 5:47 PM This order reflects the patients wishes and were consensually agreed upon. Full Code 10/11/2015 12:38 PM 10/13/2015 4:58 PM Question Answer Comments Discussion of Advance Directives occurred with: Not Discussed Does the patient have a Living Will? No Does the patient have Health Care Power of Cannon Pinion Adjuster? No Full Code 07/03/2014 2:28 PM 07/05/2014 4:44 PM This or reny reflects the patients wishes and were consensually agreed upon. Care Teams Manager User Experience Relationship Specialty Start Date End Date Toy Bedolla PA-C [address] [place] [address] PCP - General Physician Automatic Furnace Operator 11/17/22 documented as of this encounter
--- OUTSIDE RECORDS SUMMARY | 2023-04-07 19:44 | External Medical Summary | Summary of Care ---
Author Name Unknown Organization [facility] Address [address] [place] [address] Phone [phone] Care Team Providers Care Boilermaker Apprentice Name Role Phone Toy Bedolla PA-C Primary Care Provider Reason for Visit * Reason Onset Date Comments Medication Refill 03/22/2023 Encounter Details Date Type Department Care Team (Late st Contact Info) Description 03/22/2023 Refill [facility], [facility] [address] [place] [address] Toy Bedolla PA-C [address] [place] [address] Chronic pain of right knee; MEDICATION USE AGREEMENT Allergies Active Allergy Reactions Criticality Noted Date Comments Aspirin 10/11/2015 Pt told to never use aspirin after gastric bypass Amoxicillin-Pot Clavulanate Abdominal pain 05/01/2019 Buspirone 08/13/2016 Nausea, felt bad Oxybutynin 12/07/2019 confusion Azithromycin Nausea/vomiting 08/31/2013 documented as of this encounter (statuses as of 03/24/2023) Medications Medication Sig Dispensed Refills Start Date [...] needed for Pain, Moderate. 120 Tablet 0 03/24/2023 Active HYDROcodone-Aceta minophen 10-325 MG Oral TabletIndications :Chronic pain of right knee,MEDICATION USE AGREEMENT Take 1 Tablet by mouth every 6 hours as needed for Pain, Moderate. 120 Tablet 0 03/19/2023 3 Discontinu ed(Patient preference /discontin uation) Hospital, Clinic, or Other Facility Administered Medication Ordered Dose Route Frequency Start Date End Date Status vitamin b-12 (Cyanocobalamin) inj 1,000 mcgIndications:B12 deficiency 1000 mcg IM [id number] 01/06/2023 12/08/2023 Active documented as of this encounter (statuses as of 03/24/2023) Active Problems Problem Noted Date Diagnosed Date [...] 12/14 2-3mm nodules RUL and LL base. ([facility]). Also 07/13 8x7x4 SAMAN nodule (post pneumonia). Hx smoker. [facility] OTHER*[id number] 01/14/2014 Allergic rhinitis 10/11/2013 GERD (gastroesophageal reflux disease) 4 Generalized anxiety disorder 10/11/2013 History of kidney stones 09/13/2013 Overview: x2--sp passed-no analysis per history 01/18 HTN, goal below 140/90 08/07/2013 Prediabetes 06/20/2013 Asthma, mild intermittent 03/19/2013 documented as of this encounter (statuses as of 03/24/2023) Resolved Problems Problem Noted Date Diagnosed Date [...] H/O colonoscopy 01/10/2017 10/14/2020 Overview: 05/15 colonoscopy [facility] WNL H/O mammogram 01/10/2017 10/14/2020 Overview: [...] F/u urogyn 03/21 with CVA--aphasia and hemiparesis-[place] [place] then [facility] 04/22 02/19 MRI Cspine severe C6-7 stenosis b/l DM in past, resolved w/Gastric bypass. 11/17 EGD WNL. 04/18 Neurosurg-not surg candidate. Consider EMG for RLE numbness. 03/17 MRI lumbar s/p L4-5surgery, no nerve root compression 02/15 PFT WNL. 11/15 stress echo. Borderline LVH, hart Dys Grade I 08/15 10 y risk=4%. NEED family hx., f/u ALMAGUER/irritability 01/14 GASPER neg 05/15 colonoscopy [facility] WNL 2010-recurrent bronchitis-requried steroids x2. DOESN"T tolerate albuterol or xoponex. Does tolerate atrovent Insulin resistance 06/20/2013 7 HTN (hypertension) 03/19/2013 4 Sleep disturbance 03/19/2013 01/10/2017 documented as of this encounter (statuses as of 03/24/2023) Immunizations Name Administration Dates Next Due Hepatitis [...] encounter Miscellaneous Notes * Telephone Encounter - Erin Mckenzie MD - 03/24/2023 7:40 AM ESTSigned Prescriptions: Disp Refills HYDROcodone-Acetaminophen 10-325 MG Oral T*120 Ta*0 Sig: Take 1 Tablet by mouth every 6 hours as needed for Pain, Moderate.Authorizing Provider: ERIN MCKENZIERefused Prescriptions: Disp Refills HYDROcodone-Acetaminophen 10-325 MG Oral T*120 Ta*0 Sig: Take 1 Tablet by mouth every 6 hours as needed for Pain, Moderate.RefusedBy: ERIN MCKENZIEason for Refusal: Refill Not Appropriate * Telephone Encounter - Erin Mckenzie MD - 03/24/2023 7:38 AM ESTRefused Prescriptions: Disp Refills HYDROcodone-Acetaminophen 10-325 MG Oral T*120 Ta*0 Sig: Take 1 Tablet by mouth every 6 hours as needed for Pain, Moderate. Refused By: ERIN MCKENZIE Reason for Refusal: Refill Not Appropriate * Telephone Encounter - Rossy Chavez house mover helper - 03/23/2023 2:12 PM EST Pt requesting HIGH PRIORITY due to being out of medication. Pt calling to check on status of Hydrocodone-APAP 10/325. Caller can be reached at [phone]. Thank you, Rossy Chavez Applications Sales Representative [facility] ([facility] (Formerly Telepharmacy) 03/23/2023,2:12 PM * Telephone Encounter - Kala Chris [facility] - 03/23/2023 11:23 AM EST Pending Prescriptions: Disp Refills HYDROcodone-Acetaminophen 10-325 MG Oral T*120 Ta*0 Sig: Take 1 Tablet by mouth every 6 hours as needed for Pain, Moderate. * Telephone Encounter - Kala Chris, [facility] - 03/23/2023 11:21 AM EST Pt requesting reroute to [facility]. Please issue if appropriate. I e-cancelled Rx sent to [facility]. I have reviewed the patients controlled substance dispensing history in the Prescription Drug Monitoring Program in compliance with the [facility] regulations before prescribing a controlled substance. PDMP checked on 03/23/2023. Pending Prescriptions: Disp Refills HYDROcodone-Acetaminophen 10-325 MG Oral *120 Ta*0 Sig: Take 1 Tablet by mouth every 6 hours as needed for Pain, Moderate. Last Visit: 03/19/2023 (in office), Visit date not found (telemedicine) Next Visit: Visit date not found Date medication was last filled: 02/15/23 Date medication is due for refill: 03/09/23 Pharmacy: [facility] [address] [place] [address] CLOVIS WATSON ANA M Is this request for a controlled substance? Yes and Urine Drug Screen was completed Toxicology results: Results for orders placed or performed in visit on 02/07/23 PAIN MANAGEMENT DRUG PANEL, URINE W/ INTERPRETATION Result Value Compliance Interpretation Based on the medication information provided: The presence of hydrocodone is CONSISTENT with hydrocodone use. Amphetamines Screen, U Negative Benzodiazepines Screen, U Negative Cannabinoids Screen, U Negative Cocaine Metabolite Screen, U Negative Fentanyl Screen, U Negative Hydrocodone Screen, U Refer to confirmation results (A) Methadone Metabolite Screen, U Negative Morphine/Codeine Screen, U Negative Oxycodone Screen, U Negative Valid Interpretation Normal Creatinine, U 16 Specific [place], U 1.0038 Narrative Cutoff Concentrations: Drug Level Amphetamines 500 ng/mL Benzodiazepines 100 ng/mL Cannabinoids 50 ng/mL Cocaine Metabolite 150 ng/mL Fentanyl 1 ng/mL Hydrocodone / Hydromorphone 300 ng/mL Methadone Metabolite 100 ng/mL Morphine / Codeine 300 ng/mL Oxycodone / Oxymorphone 100 ng/mL Screening results are presumptive and can only be used for medical purposes. Confirmatory testing is available upon request. Results for orders placed or performed in visit on 06/30/18 TOX SCREEN, URINE, W/ CONFIRMATION Result Value Amphetamine NEGATIVE Barbiturates NEGATIVE Benzodiazepines NEGATIVE Cannabinoids NEGATIVE Cocaine Metabolite NEGATIVE Morphine / Codeine NEGATIVE METHADONE METABOLITE NEGATIVE OXYCODONE NEGATIVE TOX COMMENT THE ABOVE SCREENING RESULTS ARE PRESUMPTIVE AND CAN ONLY BE USED FOR MEDICAL PURPOSES. POSITIVE RESULTS REFLEX TO CONFIRMATORY TESTING. Cutoff Concentration *Note: Due to a large number of results and/or encounters for the requested time period, some results have not been displayed. A complete set of results can be found in Results Review. Please approve if appropriate. Thank you, Kala Chris PharmD Clinical Pharmacist [facility] ([facility]) (formerly Telepharmacy) 03/23/23 11:22 AM [phone] * Telephone Encounter - Lexy Helms PHARM Tech - 03/22/2023 1:01 PM EST Please reroute Rx to [facility] [address] [place] [address] N CLOVIS VIRAMONTES. Pending Prescriptions: Disp Refills HYDROcodone-Acetaminophen 10-325 MG Oral *120 Ta*0 Sig: Take 1 Tablet by mouth every 6 hours as needed for Pain, Moderate. Last Visit: 03/19/2023 (in office), Visit date not found (telemedicine) Visit date not found If no future appointments scheduled, and last appointment is greater than a year ago, please schedule patient for a follow-up appointment Last date the medication was ordered: 03-19-23 Patient Phone Numbers Labs: Lab Results Component Value Date/Time CREAT 0.58 (A) 03/02/2023 12:00 AM CREAT 0.6 02/07/2020 02:23 PM POTASSIUM 4.6 03/02/2023 12:00 AM POTASSIUM 4.4 02/07/2020 02:23 PM TSH 1.56 01/25/2022 04:08 PM TSH 1.62 08/22/2019 01:27 PM LDLCALC 118 08/28/2022 04:21 PM LDLCALC 98 04/15/2015 11:20 AM LDLDIRECT 131 (H) 11/09/2019 01:34 PM ALT 18 01/31/2021 01:26 PM ALT 15 02/07/2020 02:23 PM HGBA1C 6.1 (H) 08/28/2022 04:21 PM HGBA1C 5.9 (H) 08/22/2019 01:27 PM documented in this encounter Plan of Treatment Upcoming Encounters Date Type Department Care Team (Latest Contact Info) Description 05/17/2023 11:40 AM EST Office Visit General Surgery, [facility] [address] [place] [address] Antolin Becerra MD [address] [facility] [place] [address] 06/09/2023 7:45 AM EST Hospital Encounter OR GM, Operating Room, [facility] 3rd Floor [address] [place] [address] Antolin Becerra MD [address] [facility] [place] [address] 06/09/2023 7:45 AM EST - 06/09/2023 10:15 AM EST Surgery OR [facility], Operating Room, [facility] 3rd Floor [address] [place] [address] Antolin Becerra MD [address] [facility] [place], [place] [address] ROBOTIC INCISIONAL/VENTRAL/ UMBILICAL HERNIA REPAIR INITIAL < 3 CM INCARCERATED/RICHARD ULATED 06/13/2023 10:00 AM EDT Scheduled Telephone General Surgery, [facility] [address] [place] [address] Efrain Nurse Follow Up Phone Call [address] [place] [address] 06/14/2023 1:00 PM EDT Office Visit General Surgery, [facility] [address] [place] [address] Antolin Becerra MD [address] [facility] [place] [id number] Scheduled Procedures Name Priority Associated Diagnoses Date/Ti [...] MEDICATION NEEDED FOR OSTEOPOROSIS (REFER TO SMARTSET #6479) 06/17/2022 Depression, Most Recent Score >= 10 [...] D LEVEL ONCE IN A LIFETIME-USE SMARTSET# [id number] Completed 01/25/2022, 05/02/2020, 12/20/2018, Additional history exists [...] as of this encounter Visit Diagnoses Diagnosis Chronic pain of right knee MEDICATION USE AGREEMENT Marginal ulcer Gastrojejunal ulcer, [...] the patient have Health Care Power of Internet Cafe Manager? Yes, not currently available Code Status History Code Status Date Activated Date Inactivated Comments Full Code 04/14/2018 5:47 PM 04/18/2018 6:34 PM This order reflects the patients wishes and were consensually agreed upon. Question Answer Comments Discussion of Advance Directives occurred with: Not Discussed Does the patient have a Living Will? Yes, not currently available Does the patient have Health Care Power of Internet Cafe Manager? Yes, not currently available Full Code 04/14/2018 12:43 PM 04/14/2018 5:47 PM This order reflects the patients wishes and were consensually agreed upon. Full Code 10/11/2015 12:38 PM 10/13/2015 4:58 PM Question Answer Comments Discussion of Advance Directives occurred with: Not Discussed Does the patient have a Living Will? No Does the patient have Health Care Power of Internet Cafe Manager? No Full Code 07/03/2014 2:28 PM 07/05/2014 4:44 PM This or reny reflects the patients wishes and were consensually agreed upon. Care Teams Boilermaker Apprentice Relationship Specialty Start Date End Date Toy Bedolla PA-C [address] [place] [address] PCP - General Physician Manager Of Application Development 11/17/22 documented as of this encounter
--- OUTSIDE RECORDS SUMMARY | 2023-04-07 19:44 | External Medical Summary | Summary of Care ---
Author Name Unknown Organization [facility] Address [address] [place] [address] Phone [phone] Care Team Providers Care Stoper Name Role Phone Toy Bedolla PA-C Primary Care Provider Reason for Visit * Reason Comments Physical-Exam Encounter Details Date Type Department Care Team (Late st Contact Info) Description 03/19/2023 2:00 PM EST Office Visit [facility] [address] [place], [place] [phone] Toy Bedolla PA-C [address] [place], [place] [phone] Pre-operative examination*; Chronic pain of right knee; [...] inj 1,000 mcgIndications:B12 deficiency 1000 mcg IM [id number] 01/06/2023 12/08/2023 Active documented as of this [...] 12/14 2-3mm nodules RUL and LL base. ([facility]). Also 07/13 8x7x4 SAMAN nodule (post pneumonia). Hx smoker. [facility] OTHER*[id number] 01/14/2014 Allergic rhinitis 10/11/2013 GERD (gastroesophageal reflux [...] H/O colonoscopy 01/10/2017 10/14/2020 Overview: 05/15 colonoscopy [facility] WNL H/O mammogram 01/10/2017 10/14/2020 Overview: [...] F/u urogyn 03/21 with CVA--aphasia and hemip[place] [place] [facility] [place] 02/19 MRI Cspine severe C6-7 stenosis b/l DM in past, resolved w/Gastric bypass. 11/17 EGD WNL. 04/18 Neurosurg-not surg candidate. Consider EMG for RLE numbness. 03/17 MRI lumbar s/p L4-5surgery, no nerve root compression 02/15 PFT WNL. 11/15 stress echo. Borderline LVH, hart Dys Grade I 08/15 10 y risk=4%. NEED family hx., f/u ALMAGUER/irritability 01/14 GASPER neg 05/15 colonoscopy [facility] WNL 2010-recurrent bronchitis-requried steroids x2. DOESN"T [...] COPD, group D, by GOLD 2017 classification ([facility]) (07/12/2022) Age-related osteoporosis without current pathological fracture (2022) COPD, group C, by GOLD 2017 classification ([facility]) (11/09/2021) Chronic obstructive pulmonary disease ([facility]) (10/20/2021) Recurrent major depressive disorder, in partial remission ([facility]) () COVID-19 virus infection (01/31/2021) Marginal ulcer (01/31/2021) Stress due to illness of family member (06/02/2020) Major depressive disorder, recurrent, unspecified ([facility]) (05/09/2019) Abscess of abdominal wall (04/29/2018) Perforated [...] 100 (07/03/2014) Lung nodules (02/17/2014) [facility] OTHER*[id number] (01/14/2014) Type 2 diabetes mellitus with hemoglobin A1c goal of less than 8.0% ([facility]) (11/01/2013) Allergic rhinitis (10/11/2013) GERD (gastroesophageal reflux [...] stenosis (04/13/2018), COPD (chronic obstructive pulmonary disease) ([facility]), COVID-19 virus infection (01/31/2021), CTS (carpal tunnel [...] (01/31/2021), MEDICATION USE AGREEMENT (01/12/2017), [facility] OTHER*[id number] (01/14/2014), Prediabetes (06/20/2013), Recurrent major depressive disorder, [...] None Toy Bedolla PA-C 03/19/2023 2:21 PM [facility] [place] [address] [facility] [phone] I spent a total of 20-29 minutes [...] 11:40 AM EST Office Visit General Surgery, [facility] [address] [place] [address] Antolin Becerra MD [address] [place] [address] 06/09/2023 7:45 AM EST Hospital Encounter OR [facility], Operating Room, [facility] 3rd Floor [address] [place] [address] Antolin Becerra MD [address] [place] [address] 06/09/2023 7:45 AM EST - 06/09/2023 10:15 AM EST Surgery OR [facility], Operating Room, [facility] 3rd Floor [address] [place] [address] Antolin Becerra MD [address] [place], [place] [id number] ROBOTIC INCISIONAL/VENTRAL/ UMBILICAL HERNIA REPAIR INITIAL < 3 CM INCARCERATED/RICHARD ULATED 06/13/2023 10:00 AM EDT Scheduled Telephone General Surgery, [facility] [address] [place] [address] Efrain Nurse Follow Up Phone Call [address] [place] [address] 06/14/2023 1:00 PM EDT Office Visit General Surgery, [facility] [address] [place] [address] Antolin Becerra MD [address] [facility], [place] [phone] Scheduled Orders Name Type Priority Associated Diagnoses [...] D LEVEL ONCE IN A LIFETIME-USE SMARTSET# [id number] Completed 01/25/2022, 05/02/2020, 12/20/2018, Additional history exists [...] the patient have Health Care Power of Log Getter? Yes, not currently available Code Status History Code Status Date Activated Date Inactivated Comments Full Code 04/14/2018 5:47 PM 04/18/2018 6:34 PM This order reflects the patients wishes and were consensually agreed upon. Question Answer Comments Discussion of Advance Directives occurred with: Not Discussed Does the patient have a Living Will? Yes, not currently available Does the patient have Health Care Power of Log Getter? Yes, not currently available Full Code 04/14/2018 12:43 PM 04/14/2018 5:47 PM This order reflects the patients wishes and were consensually agreed upon. Full Code 10/11/2015 12:38 PM 10/13/2015 4:58 PM Question Answer Comments Discussion of Advance Directives occurred with: Not Discussed Does the patient have a Living Will? No Does the patient have Health Care Power of Log Getter? No Full Code 07/03/2014 2:28 PM 07/05/2014 4:44 PM This or reny reflects the patients wishes and were consensually agreed upon. Care Teams Stoper Relationship Specialty Start Date End Date Toy Bedolla PA-C [address] [place] [address] PCP - General Physician Semiautomatic Stitcher Operator 11/17/22 documented as of this encounter
--- OUTSIDE RECORDS SUMMARY | 2023-04-07 19:44 | External Medical Summary | Summary of Care ---
Author Name Unknown Organization [facility] Address [address] [place] [address] Phone [phone] Care Team Providers Care Fur Dry Cleaner Hand Name Role Phone Toy Bedolla PA-C Primary Care Provider Reason for Visit * Reason Onset Date Comments Appointment 03/04/2023 Encounter Details Date Type Department Care Team (Late st Contact Info) Description 03/04/2023 Telephone Family Practice, [facility] [address] [place] [address] Toy Bedolla PA-C [address] [place] [address] Appointment Allergies Active Allergy Reactions [...] inj 1,000 mcgIndications:B12 deficiency 1000 mcg IM [id number] 01/06/2023 12/08/2023 Active documented as of this [...] 12/14 2-3mm nodules RUL and LL base. ([facility]). Also 07/13 8x7x4 SAMAN nodule (post pneumonia). Hx smoker. BUSTILLOS RESEARCH OTHER*[id number] 01/14/2014 Allergic rhinitis 10/11/2013 GERD (gastroesophageal reflux [...] H/O colonoscopy 01/10/2017 10/14/2020 Overview: 05/15 colonoscopy [facility] WNL H/O mammogram 01/10/2017 10/14/2020 Overview: [...] F/u urogyn 03/21 with CVA--aphasia and hemiparesis[place] [place] [facility] 04/22 02/19 [...] f/u ALMAGUER/irritability 01/14 GASPER neg 05/15 colonoscopy [facility] WNL 2010-recurrent bronchitis-requried steroids x2. DOESN"T [...] She is scheduled with Dr. Musa in [place] for a right knee replacement 04/07/22. This is located at [facility]. Ph. [phone] Fax. [phone] I called today to have pre admission testing faxed to the office. * Telephone Encounter - Toy Bedolla PA-C - 2023 8:22 AM EST For what procedure? The next listed procedure in [facility] is 06/09/2023? I would not authorize a [...] the surgery. Please call pt back at [phone]. documented in this encounter Plan of Treatment Upcoming Encounters Date Type Department Care Team (Latest Contact Info) Description 03/19/2023 2:00 PM EST Office Visit Family [facility], [facility] [address] [place] [address] Toy Bedolla PA-C [address] [place] [address] 05/17/2023 11:40 AM EST Office Visit General Surgery, [facility] [address] [place] [address] Antolin Becerra MD [address] [facility] [place] [address] 06/09/2023 7:45 AM EST Hospital Encounter OR [facility], Operating Room, [facility] 3rd Floor [address] [place] [address] Antolin Becerra MD [address] [place] [address] 06/09/2023 7:45 AM EST - 06/09/2023 10:15 AM EST Surgery OR GM, Operating Room, [facility] 3rd Floor [address] [place] [address] Antolin Becerra MD [address] [facility], [place] [id number] ROBOTIC INCISIONAL/VENTRAL/ UMBILICAL HERNIA REPAIR INITIAL < 3 CM INCARCERATED/RICHARD ULATED 06/13/2023 10:00 AM EDT Scheduled Telephone General Surgery, [facility] [address] [place] [address] [place], Nurse Follow Up Phone Call [address] [place] [address] 06/14/2023 1:00 PM EDT Office Visit General Surgery, [facility] [address] [place] [address] Antolin Becerra MD [address] [facility], [place] [id number] Scheduled Procedures Name Priority Associated Diagnoses Date/Ti ut ROBOTIC INCISIONAL/VENTRAL/UMBILICA L HERNIA REPAIR INITIAL < [...] D LEVEL ONCE IN A LIFETIME-USE SMARTSET# [id number] Completed 01/25/2022, 05/02/2020, 12/20/2018, Additional history exists [...] the patient have Health Care Power of Licensing Representative? Yes, not currently available Code Status History Code Status Date Activated Date Inactivated Comments Full Code 04/14/2018 5:47 PM 04/18/2018 6:34 PM This order reflects the patients wishes and were consensually agreed upon. Question Answer Comments Discussion of Advance Directives occurred with: Not Discussed Does the patient have a Living Will? Yes, not currently available Does the patient have Health Care Power of Licensing Representative? Yes, not currently available Full Code 04/14/2018 12:43 PM 04/14/2018 5:47 PM This order reflects the patients wishes and were consensually agreed upon. Full Code 10/11/2015 12:38 PM 10/13/2015 4:58 PM Question Answer Comments Discussion of Advance Directives occurred with: Not Discussed Does the patient have a Living Will? No Does the patient have Health Care Power of Licensing Representative? No Full Code 07/03/2014 2:28 PM 07/05/2014 4:44 PM This or reny reflects the patients wishes and were consensually agreed upon. Care Teams Fur Dry Cleaner Hand Relationship Specialty Start Date End Date Toy Bedolla PA-C [address] [place] [address] PCP - General Physician Academic Support Center Director 11/17/22 documented as of this encounter
--- OUTSIDE RECORDS SUMMARY | 2023-04-07 19:44 | External Medical Summary | Summary of Care ---
Author Name Unknown Organization [facility] Address [address] [place] [address] Phone [phone] Care Team Providers Care Lead Electrical Engineer Name Role Phone Toy Bedolla PA-C Primary Care Provider Reason for Visit * Reason Onset Date Comments Medication Refill 03/12/2023 Encounter Details Date Type Department Care Team (Late st Contact Info) Description 03/12/2023 Refill General Surgery, [place] [address] [place] [address] Antolin Becerra MD [address] [place] [address] Allergies Active Allergy Reactions Criticality Noted Date [...] 10/03/2022 Active Gabapentin 100 MG Oral Capsule (Neurontin)Indica tions:Chronic pain of right knee Take 1 Capsule by mouth in the morning and 1 Capsule at noon and 1 Capsule before bedtime. 90 Capsule 5 11/12/2022 Active Ondansetron HCl 4 MG Oral TabletIndications :Gastroesophageal reflux disease, unspecified whether esophagitis present Take 1 Tablet by mouth every 6 hours as needed for Nausea. 40 Tablet 1 02/07/2023 Active HYDROcodone-Aceta minophen 10-325 MG Oral TabletIndications :MEDICATION [...] Muscle spasms. 30 Tablet 0 03/15/2023 Active tiZANidine HCl 2 MG Oral Tablet (Zanaflex) Take 1 Tablet by mouth every 8 hours as needed for Muscle spasms. 30 Tablet 0 02/04/2023 3 Discontinu ed(Refill) Hospital, Clinic, or Other Facility Administered Medication Ordered Dose Route Frequency Start Date End Date Status vitamin b-12 (Cyanocobalamin) inj 1,000 mcgIndications:B12 deficiency 1000 mcg IM [id number] 01/06/2023 12/08/2023 Active documented as of this [...] 12/14 2-3mm nodules RUL and LL base. ([facility]). Also 07/13 8x7x4 SAMAN nodule (post pneumonia). Hx smoker. BUSTILLOS RESEARCH OTHER*[id number] 01/14/2014 Allergic rhinitis 10/11/2013 GERD (gastroesophageal reflux [...] H/O colonoscopy 01/10/2017 10/14/2020 Overview: 05/15 colonoscopy [facility] WNL H/O mammogram 01/10/2017 10/14/2020 Overview: [...] f/u ALMAGUER/irritability 01/14 GASPER neg 05/15 colonoscopy [facility] WNL 2010-recurrent bronchitis-requried steroids x2. DOESN"T [...] encounter Miscellaneous Notes * Telephone Encounter - Antolin Becerra MD - 03/15/2023 9:44 AM EST Signed Prescriptions: Disp Refills tiZANidine HCl 2 MG Oral Tablet (Zanaflex) 30 Tab*0 Sig: Take 1 Tablet by mouth every 8 hours as needed for Muscle spasms. Authorizing Provider: ANTOLIN BECERRA * Telephone Encounter - Heidi Cabrera LPN - 03/14/2023 7:12 AM ESTPending Prescriptions: Disp Refills tiZANidine HCl 2 MG Oral Tablet (Zanaflex) 30 Tab*0 Sig: Take 1Tablet by mouth every 8 hours as needed for Muscle spasms. documented in this encounter Plan of Treatment Upcoming Encounters Date Type Department Care Team (Latest Contact Info) Description 03/19/2023 2:00 PM EST Office Visit [facility] [address] [place] [address] Toy Bedolla PA-C [address] [place] [address] 05/17/2023 11:40 AM EST Office Visit General Surgery, [address] [address] Antolin Becerra MD [address] [facility] [place] [address] 06/09/2023 7:45 AM EST Hospital Encounter OR [facility], Operating Room, [facility] 3rd Floor [address] [place] [address] Antolin Becerra MD [address] [facility] [place] [address] 06/09/2023 7:45 AM EST - 06/09/2023 10:15 AM EST Surgery OR [facility], Operating Room, [address] [place] [address] Antolin Becerra MD [address] [place] [address] ROBOTIC INCISIONAL/VENTRAL/ UMBILICAL HERNIA REPAIR INITIAL < 3 CM INCARCERATED/RICHARD ULATED 06/13/2023 10:00 AM EDT Scheduled Telephone General Surgery, [facility] [address] [place] [address] [place], Nurse Follow Up Phone Call [address] [place] [address] 06/14/2023 1:00 PM EDT Office Visit General Surgery, [facility] [address] [place] [address] Antolin Becerra MD [address] [place] [address] Scheduled Procedures Name Priority Associated Diagnoses Date/Ti [...] D LEVEL ONCE IN A LIFETIME-USE SMARTSET# [id number] Completed 01/25/2022, 05/02/2020, 12/20/2018, Additional history exists [...] the patient have Health Care Power of Stone Banker? Yes, not currently available Code Status History Code Status Date Activated Date Inactivated Comments Full Code 04/14/2018 5:47 PM 04/18/2018 6:34 PM This order reflects the patients wishes and were consensually agreed upon. Question Answer Comments Discussion of Advance Directives occurred with: Not Discussed Does the patient have a Living Will? Yes, not currently available Does the patient have Health Care Power of Stone Banker? Yes, not currently available Full Code 04/14/2018 12:43 PM 04/14/2018 5:47 PM This order reflects the patients wishes and were consensually agreed upon. Full Code 10/11/2015 12:38 PM 10/13/2015 4:58 PM Question Answer Comments Discussion of Advance Directives occurred with: Not Discussed Does the patient have a Living Will? No Does the patient have Health Care Power of Stone Banker? No Full Code 07/03/2014 2:28 PM 07/05/2014 4:44 PM This or reny reflects the patients wishes and were consensually agreed upon. Care Teams Lead Electrical Engineer Relationship Specialty Start Date End Date Toy Bedolla PA-C [address] [place] [address] PCP - General Physician Ammonia Print Operator 11/17/22 documented as of this encounter
--- OUTSIDE RECORDS SUMMARY | 2023-04-07 19:45 | External Medical Summary | Summary of Care ---
Author Name Unknown Organization [facility] Address [address] [place] [address] Phone [phone] Care Team Providers Care Media Consultant Outside Sales Name Role Phone Toy Bedolla PA-C Primary Care Provider Reason for Visit * Reason Onset Date Comments Appointment 03/04/2023 Encounter Details Date Type Department Care Team (Late st Contact Info) Description 03/04/2023 Telephone Family Practice, [facility] [address] [place] [address] Toy Bedolla PA-C [address] [place] [address] Appointment Allergies Active Allergy Reactions [...] inj 1,000 mcgIndications:B12 deficiency 1000 mcg IM [id number] 01/06/2023 12/08/2023 Active documented as of this [...] 12/14 2-3mm nodules RUL and LL base. ([facility]). Also 07/13 8x7x4 SAMAN nodule (post pneumonia). Hx smoker. 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 11/17 EGD WNL. 04/18 Neurosurg-not surg candidate. Consider EMG for RLE numbness. 03/17 MRI lumbar s/p L4-5surgery, no nerve root compression 02/15 PFT WNL. 11/15 stress echo. Borderline LVH, hart Dys Grade I 08/15 10 y risk=4%. NEED family hx., f/u ALMAGUER/irritability 01/14 GASPER neg 05/15 colonoscopy [facility] WNL 2010-recurrent bronchitis-requried steroids x2. DOESN"T [...] She is scheduled with Dr. Musa in [place] for a right knee replacement 04/07/22. This is located at [facility]. Ph. [phone] Fax. [phone] I called today to have pre admission testing faxed to the office. * Telephone Encounter - Toy Bedolla PA-C - 2023 8:22 AM EST For what procedure? The next listed procedure in Epic is 06/09/2023? I would not authorize a [...] the surgery. Please call pt back at [phone]. documented in this encounter Plan of Treatment Upcoming Encounters Date Type Department Care Team (Latest Contact Info) Description 03/19/2023 2:00 PM EST Office Visit Family [facility], [facility] [address] [place] [address] Toy Bedolla PA-C [address] [place] [address] 05/17/2023 11:40 AM EST Office Visit General Surgery, [facility] [address] [place] [address] Antolin Becerra MD [address] [facility] [place] [address] 06/09/2023 7:45 AM EST Hospital Encounter OR [facility], Operating Room, [facility] 3rd Floor [address] [place] [address] Antolin Becerra MD [address] [facility] [place] [address] 06/09/2023 7:45 AM EST - 06/09/2023 10:15 AM EST Surgery OR [facility], Operating Room, [facility] 3rd Floor [address] [place] [address] Antolin Becerra MD [address] [place] [address] ROBOTIC INCISIONAL/VENTRAL/ UMBILICAL HERNIA REPAIR INITIAL < 3 CM INCARCERATED/RICHARD ULATED 06/13/2023 10:00 AM EDT Scheduled Telephone General Surgery, [facility] [address] [place] [address] [place], Nurse Follow Up Phone Call [address] [place] [address] 06/14/2023 1:00 PM EDT Office Visit General Surgery, [facility] [address] [place] [address] Antolin Becerra MD [address] [place] [address] Scheduled Procedures Name Priority Associated Diagnoses Date/Ti [...] D LEVEL ONCE IN A LIFETIME-USE SMARTSET# [id number] Completed 01/25/2022, 05/02/2020, 12/20/2018, Additional history exists [...] the patient have Health Care Power of Delivery Man? Yes, not currently available Code Status History Code Status Date Activated Date Inactivated Comments Full Code 04/14/2018 5:47 PM 04/18/2018 6:34 PM This order reflects the patients wishes and were consensually agreed upon. Question Answer Comments Discussion of Advance Directives occurred with: Not Discussed Does the patient have a Living Will? Yes, not currently available Does the patient have Health Care Power of Delivery Man? Yes, not currently available Full Code 04/14/2018 12:43 PM 04/14/2018 5:47 PM This order reflects the patients wishes and were consensually agreed upon. Full Code 10/11/2015 12:38 PM 10/13/2015 4:58 PM Question Answer Comments Discussion of Advance Directives occurred with: Not Discussed Does the patient have a Living Will? No Does the patient have Health Care Power of Delivery Man? No Full Code 07/03/2014 2:28 PM 07/05/2014 4:44 PM This or reny reflects the patients wishes and were consensually agreed upon. Care Teams Media Consultant Outside Sales Relationship Specialty Start Date End Date Toy Bedolla PA-C [address] [place] [address] PCP - General Physician Baling Press Operator 11/17/22 documented as of this encounter
--- OUTSIDE RECORDS SUMMARY | 2023-04-07 19:45 | External Medical Summary | Summary of Care ---
Author Name Unknown Organization [facility] Address [address] [place] [address] Phone [phone] Care Team Providers Care Compliance Investigator Name Role Phone Toy Bedolla PA-C Primary Care Provider Reason for Visit * Reason Onset Date Comments Test Results 02/14/2023 -02/21 Advice 02/14/2023 Encounter Details Date Type Department Care Team (Late st Contact Info) Description 02/14/2023 Telephone [facility] [address] [place] [address] Toy Bedolla PA-C [address] [place] [address] Test Results (); Advice Allergies Active Allergy Reactions Criticality Noted Date Comments Aspirin 10/11/2015 Pt told to never use aspirin after gastric bypass Amoxicillin-Pot Clavulanate Abdominal pain 05/01/2019 Buspirone 08/13/2016 Nausea, felt bad Oxybutynin 12/07/2019 confusion Azithromycin Nausea/vomiting 08/31/2013 documented as of this encounter (statuses as of 03/03/2023) Medications Medication Sig Dispensed Refills Start Date [...] 02/04/2023 Active Ondansetron HCl 4 MG Oral TabletIndications :Gastroesophageal reflux disease, unspecified whether esophagitis present Take 1 Tablet by mouth every 6 hours as needed for Nausea. 40 Tablet 1 02/07/2023 Active Losartan Potassium 50 MG Oral Tablet (Cozaar)Indicatio ns:HTN, goal below 140/90 Take 1 Tablet by mouth in the morning. 30 Tablet 5 03/03/2023 Active Losartan Potassium 50 MG Oral Tablet (Cozaar)Indicatio ns:HTN, goal below 140/90 Take 1 Tablet by mouth in the morning. 30 Tablet 5 02/07/2023 3 Discontinu ed(Refill) Hospital, Clinic, or Other Facility Administered Medication Ordered Dose Route Frequency Start Date End Date Status vitamin b-12 (Cyanocobalamin) inj 1,000 mcgIndications:B12 deficiency 1000 mcg IM [id number] 01/06/2023 12/08/2023 Active documented as of this encounter (statuses as of 03/03/2023) Active Problems Problem Noted Date Diagnosed Date [...] 12/14 2-3mm nodules RUL and LL base. ([facility]). Also 07/13 8x7x4 SAMAN nodule (post pneumonia). Hx smoker. BUSTILLOS RESEARCH OTHER*[id number] 01/14/2014 Allergic rhinitis 10/11/2013 GERD (gastroesophageal reflux disease) 4 Generalized anxiety disorder 10/11/2013 History of kidney stones 09/13/2013 Overview: x2--sp passed-no analysis per history 01/18 HTN, goal below 140/90 08/07/2013 Prediabetes 06/20/2013 Asthma, mild intermittent 03/19/2013 documented as of this encounter (statuses as of 03/03/2023) Resolved Problems Problem Noted Date Diagnosed Date [...] H/O colonoscopy 01/10/2017 10/14/2020 Overview: 05/15 colonoscopy [facility] WNL H/O mammogram 01/10/2017 10/14/2020 Overview: [...] f/u ALMAGUER/irritability 01/14 GASPER neg 05/15 colonoscopy [facility] WNL 2010-recurrent bronchitis-requried steroids x2. DOESN"T tolerate albuterol or xoponex. Does tolerate atrovent Insulin resistance 06/20/2013 7 HTN (hypertension) 03/19/2013 4 Sleep disturbance 03/19/2013 01/10/2017 documented as of this encounter (statuses as of 03/03/2023) Immunizations Name Administration Dates Next Due Hepatitis [...] Telephone Encounter - Toy Bedolla PA-C - 03/03/2023 1:46 PM EST Rx sent as pended. * Telephone Encounter - Laverne Luna CMA - 02/23/2023 10:02 AM EST Relayed message to pt and verbalized understanding * Telephone Encounter - Toy Bedolla PA-C - 02/22/2023 12:15 PM EST I reviewed her message and UpToDate re: side effects with hydrocodone. Itching can be a side effectof any opioid in some people. The bruising, however, is not. I do not think the medication would becausing her current symptoms. * Telephone Encounter - Fatou Delgado LPN - 02/22/2023 11:58 AM EST Pt is calling and is asking if hydrocodone can cause bruising. Reports that she has bruising from he knees to her upper thighs. Does get an occasional itching feeling behind her neck, arms and sometimes to her face. States thatthe itch is a nusense. Is asking if these are side effects of Hydrocodone and if she is ok to continue it? States that the mediation if really helping her knee pain and does not want to go without it if shedoes not have to. Would be agreeable with medication being replaced if need be but needs something stronger that Tylenol because it does not help the pain. Please advise. * Telephone Encounter - Yanique Pathak OSA - 02/22/2023 11:54 AM EST Reason for patient's call: returning a missed call Caller was transferred to Fatou at the nurse line. * Telephone Encounter - Maria Luisa Welch MED ASSIST - 02/21/2023 11:28 AM EST Left message for the patient to call the office. * Telephone Encounter - Aure Colmenares OSA - 02/14/2023 11:39 AM EST Spoke with patient and she has further Please reach out to patient TY * Telephone Encounter - Susie Cordoba LPN - 02/14/2023 9:20 AM EST Left message for patient to call office for results below. ----- Message from Toy Bedolla PA-C sent at 02/10/2023 11:54 PM EST ----- UDS compliance passed. Routing to nursing if needed for any prior auth. documented in this encounter Plan of Treatment Upcoming Encounters Date Type Department Care Team (Latest Contact Info) Description 04/01/2023 3:40 PM EST Office Visit Family [facility] [address] [place] [address] Toy Bedolla PA-C [address] [place] [address] 05/17/2023 11:40 AM EST Office Visit General Surgery, [facility] [address] [place] [address] Antolin Becerra MD [address] [facility] [place] [address] 06/09/2023 7:45 AM EST Hospital Encounter OR [facility], Operating Room, [facility] 3rd Floor [address] [place] [address] Antolin Becerra MD [address] [facility] [address] 06/09/2023 7:45 AM EST - 06/09/2023 10:15 AM EST Surgery OR [facility], Operating Room, [facility] 3rd Floor [address] [place] [address] Antolin Becerra MD [address] [facility] [place] [address] ROBOTIC INCISIONAL/VENTRAL/ UMBILICAL HERNIA REPAIR INITIAL < 3 CM INCARCERATED/RICHARD ULATED 06/13/2023 10:00 AM EDT Scheduled Telephone General Surgery, [facility] [address] [place] [address] [place] Nurse Follow Up Phone Call [address] [place] [address] 06/14/2023 1:00 PM EDT Office Visit General Surgery, [facility] [address] [facility] [place] [address] Antolin Becerra MD [address] [facility] [place] [address] Scheduled Procedures Name Priority Associated Diagnoses Date/Ti [...] D LEVEL ONCE IN A LIFETIME-USE SMARTSET# [id number] Completed 01/25/2022, 05/02/2020, 12/20/2018, Additional history exists [...] as of this encounter Visit Diagnoses Diagnosis HTN, goal below 140/90- Primary Unspecified essential hypertension Marginal ulcer Gastrojejunal ulcer, unspecified as acute [...] the patient have Health Care Power of Sheeter Machine Operator? Yes, not currently available Code Status History Code Status Date Activated Date Inactivated Comments Full Code 04/14/2018 5:47 PM 04/18/2018 6:34 PM This order reflects the patients wishes and were consensually agreed upon. Question Answer Comments Discussion of Advance Directives occurred with: Not Discussed Does the patient have a Living Will? Yes, not currently available Does the patient have Health Care Power of Sheeter Machine Operator? Yes, not currently available Full Code 04/14/2018 12:43 PM 04/14/2018 5:47 PM This order reflects the patients wishes and were consensually agreed upon. Full Code 10/11/2015 12:38 PM 10/13/2015 4:58 PM Question Answer Comments Discussion of Advance Directives occurred with: Not Discussed Does the patient have a Living Will? No Does the patient have Health Care Power of Sheeter Machine Operator? No Full Code 07/03/2014 2:28 PM 07/05/2014 4:44 PM This or reny reflects the patients wishes and were consensually agreed upon. Care Teams Compliance Investigator Relationship Specialty Start Date End Date Toy Bedolla PA-C [address] [place] [address] PCP - General Physician Job Placement Counselor 11/17/22 documented as of this encounter
[2023-04-07] MEDS: oxyCODONE HCL IR 5 MG TAB (IMMEDIATE RELEASE) PO PRN ×2 (20:01→23:52)
[2023-04-07] MEDS: DOCUSATE SODIUM 100 MG CAP PO SCH (20:02)
[2023-04-07] MEDS: ceFAZolin 2000MG 2,000 MG/15 ML SYR IV SCH (20:03)
[2023-04-07] MEDS: SENNA 8.6 MG TAB PO SCH (20:03)
[2023-04-07] MEDS: ASPIRIN 81 MG ECTAB PO SCH (20:20)
[2023-04-08] MEDS: SODIUM CHLORIDE 0.9% 1,000 ML IV SCH (01:08)
[2023-04-08] MEDS: traMADol HCL 50 MG TABLET PO PRN ×4 (01:24→19:30)
[2023-04-08] MEDS: ceFAZolin 2000MG 2,000 MG/15 ML SYR IV SCH (03:59)
--- NOTE | 2023-04-08 06:44 | Orthopedic Progress Note ---
Date of Service April 08, 2023 Assessment & Plan (1) Right knee DJD: Plan: Postop day 1 status post right total knee replacement PT/OT protocols. Weightbearing as tolerated. DVT prophylaxis-aspirin p.o. twice daily, SCDs. Pain management as written. Labs pending. DC planning-patient is planning for inpatient rehab facility at [facility] upon discharge. Admission and Anticipated Discharge Date Admission Date: April 07, 2023 Subjective Postop day 1 Patient sitting up in bed awake and alert. Stating she is having a little bit of discomfort this morning in the knee but otherwise is feeling well. Pain is currently controlled. Patient discussed that she has a bed available at a rehab facility over near [place]. She is hoping to leave today. Physical Exam Physical Exam: Dressings are clean, dry, and intact. Calves are soft nontender. Neurovascular intact. Toes are mobile. Hemovac drainage was 100 cc from the previous shift Results & Data Vital Signs (Past 12 Hours) Vital Signs Temp Pulse Resp BP Pulse Ox O2 Del Method 04/08/23 03:20 36.7 C 77 16 122/56 L 94 Room Air 04/07/23 23:30 36.6 C 73 16 116/65 95 Room Air 04/07/23 20:27 36.3 C L 76 16 136/72 94 Room Air 04/07/23 18:45 37.0 C 76 16 135/69 95 Room Air
[2023-04-08 07:45] LABS: Hematocrit (blood only) 27.7 % (37.0-47.0); Hemoglobin 8.9 g/dl (12.0-16.0); Mean Corpuscular Hemoglobin 30.8 pg (25.0-34.0); Mean Corpuscular Hgb Conc 32.1 g/dL (32.0-36.0); Mean Corpuscular Volume 95.8 fL (80.0-100.0); Mean Platelet Volume 9.5 fL (9.4-12.4); Platelet Count 326 K/uL (130-400); RDW Coefficient of Variation 12.6 % (11.5-14.5); RDW Standard Deviation 45.1 fL (36.4-46.3); Red Blood Count 2.89 M/uL (4.20-5.40); White Blood Count 15.89 K/ul (4.8-10.8)
[2023-04-08 08:01] LABS: BUN Creatinine Ratio 15.8 (10-20); Calcium 8.6 mg/dl (8.6-10.3); Creatinine Clr Calc Pharmacy 110.9 ml/min; Est GFR (African American) 111.2 ml/min; Est GFR (Non-African American) 95.9 ml/min; Potassium 4.6 mmol/L (3.5-5.1)
[2023-04-08] MEDS: oxyCODONE HCL IR 5 MG TAB (IMMEDIATE RELEASE) PO PRN ×4 (08:09→20:30)
[2023-04-08] MEDS: ASPIRIN 81 MG ECTAB PO SCH ×2 (08:12→20:17)
[2023-04-08] MEDS: MONTELUKAST SODIUM 10 MG TABLET PO SCH (08:12)
[2023-04-08] MEDS: ZINC SULFATE 220 MG CAPSULE PO SCH (08:12)
[2023-04-08] MEDS: MULTIVITAMIN TAB PO SCH (08:12)
[2023-04-08] MEDS: VENLAFAXINE HCL XR 75 MG CAPXR PO SCH (08:12)
[2023-04-08] MEDS: VENLAFAXINE HCL XR 150 MG CAPXR PO SCH (08:12)
[2023-04-08] MEDS: MAGNESIUM OXIDE 400 MG TAB PO SCH (08:12)
[2023-04-08] MEDS: TOCOPHERYL, DL-ALPHA 100 UNITS 67 MG CAP PO SCH (08:12)
[2023-04-08] MEDS: LOSARTAN POTASSIUM 50 MG TAB PO SCH (08:12)
[2023-04-08] MEDS: DOCUSATE SODIUM 100 MG CAP PO SCH ×2 (08:13→20:18)
[2023-04-08] MEDS: PANTOprazole 40 MG TAB PO SCH (09:03)
[2023-04-08] MEDS ORDERED: KETOROLAC 30 MG/ML VIAL IV ONE (13:14)
[2023-04-08] MEDS: SENNA 8.6 MG TAB PO SCH (20:17)
[2023-04-08] MEDS: KETOROLAC 30 MG/ML VIAL IV PRN (22:09)
--- NOTE | 2023-04-09 08:20 | Orthopedic Progress Note ---
Date of Service April 09, 2023 Assessment & Plan (1) Right knee DJD: Plan: Postop day 2 status post right total knee replacement PT/OT protocols. Weightbearing as tolerated. DVT prophylaxis-aspirin p.o. twice daily, SCDs. Pain management as written. DC planning-patient is planning for inpatient rehab facility at [facility] upon discharge. Plan for discharge today. Admission and Anticipated Discharge Date Admission Date: April 07, 2023 Subjective Postop day 2 Patient sitting up in chair at the bedside. Right lower extremity elevated. Patient states that she has been dealing with the pain off and on and that the addition of the Toradol has helped. We discussed use of pillows elevating the right lower extremity while in bed. No other complaints at this time. Physical Exam Physical Exam: Dressings removed. Belén dressing maintained. It is clean, dry, and intact. No overt drainage noted. Hemovac removed without difficulty. Dressing placed over Hemovac site. Patient has swelling consistent with surgery and some mild bruising over the medial aspect of the knee. Calves are soft nontender. Neurovascular intact.
[2023-04-09] MEDS: oxyCODONE HCL IR 5 MG TAB (IMMEDIATE RELEASE) PO PRN (08:26)
[2023-04-09] MEDS: DOCUSATE SODIUM 100 MG CAP PO SCH (09:00)
[2023-04-09] MEDS: MULTIVITAMIN TAB PO SCH (09:00)
[2023-04-09] MEDS: ZINC SULFATE 220 MG CAPSULE PO SCH (09:00)
[2023-04-09] MEDS: VENLAFAXINE HCL XR 75 MG CAPXR PO SCH (09:01)
[2023-04-09] MEDS: TOCOPHERYL, DL-ALPHA 100 UNITS 67 MG CAP PO SCH (09:01)
[2023-04-09] MEDS: MAGNESIUM OXIDE 400 MG TAB PO SCH (09:01)
[2023-04-09] MEDS: LOSARTAN POTASSIUM 50 MG TAB PO SCH (09:01)
[2023-04-09] MEDS: MONTELUKAST SODIUM 10 MG TABLET PO SCH (09:02)
[2023-04-09] MEDS: PANTOprazole 40 MG TAB PO SCH (09:02)
[2023-04-09] MEDS: ASPIRIN 81 MG ECTAB PO SCH (09:02)
[2023-04-09] MEDS: VENLAFAXINE HCL XR 150 MG CAPXR PO SCH (09:03)
[2023-04-09] MEDS: KETOROLAC 30 MG/ML VIAL IV PRN (10:08)
== END 2023-04-09 10:38 ==
LOC: 3N 10:01 → ASU 10:01